=== PATIENT | male | born 1970 | race Caucasian/White ===

== ENCOUNTER 2020-07-05 09:00 | Emergency (ER) | payer BC, SELFPAY ==
[2020-07-05 09:11] VITALS: BP 138/82; PULSE 81; RESP 16; TEMP 36.8; O2SAT 100; BMI 24.7
--- NOTE | 2020-07-05 09:16 | HMH.EDUTC ---
[facility] [place] Disposition Clinical Impression: Sinusitis Qualifiers: Sinusitis location: frontal Chronicity: acute Recurrence: non-recurrent Qualified Code(s): J01.10 - Acute frontal sinusitis, unspecified Disposition: Home, Self-Care Condition on Discharge: Good Instructions: DI for Sinusitis Additional Instructions: RTC if symptoms worsen Prescriptions: Doxycycline Hyclate [Doxycycline 100mg Capsule] 100 mg PO Q12 10 Days #20 cap Transmission Status: Pending to [facility] predniSONE [Prednisone 20mg Tab] 20 mg PO BID 5 Days #10 tab Transmission Status: Pending to [facility] Promethazine/Dextromethorphan [Promethazine-Dm Syrup] 5 ml PO Q6HP PRN 10 Days #180 syrup PRN Reason: Cough Transmission Status: Pending to [facility] Referrals: Augusto Henao MD [Primary Care Provider] - Time of Disposition: 09:23 Medical Decision Making - Maged Inquiry Pt receiving controlled substance: No Vital Signs: 07/05/20 09:11 Temperature 98.2 F Temperature Source Oral Pulse Rate [Right Brachial] 81 Respiratory Rate 16 Blood Pressure [Right Arm] 138/82 Blood Pressure Mean [Right Arm] 100 Blood Pressure Source [Right Arm] Automatic Cuff Blood Pressure Position [Right Arm] Sitting 02 Sat by Pulse Oximetry 100 Oxygen Delivery Method Room Air [facility] [place] HPI - General Stated complaint: possible sinus infection Time Seen by Provider: 07/05/20 09:16 Mode of Arrival: Ambulatory Source of Information: Patient Limitations: No Limitations Description of Symptoms (Recalled from Triage Doc. by RN): PATIENT C/O COUGH, CHEST CONGESTION, AND SCRATCHY THROAT THAT STARTED APRROX 1500 YESTERDAY. ALSO C/O GREEN NASAL DRAINAGE HEENT Symptoms (Recalled from RN notes): Yes Resp Symptoms (Recalled from RN notes): Yes Skin Symptoms (Recalled from RN notes): No MS Symptoms (Recalled from RN notes): No Functional Status (Recalled from RN notes): WNL - History of Present Illness Provider Complaint: Cough, chest congestion, pain behind eyes X 2 days. Green sputum production. Denies ear pain. Has scratchy throat. Coughed all night long and could not sleep. No vomiting or diarrhea. No known exposure to COVID19. Onset (ago): day(s) (2) Location: face, chest Consistency: constant Relieving factors: none Exacerbating factors: none Associated symptoms: denies other symptoms Treatments prior to arrival: other (OTC cough med) - Related Data Previous Rx's Medication Instructions Recorded Doxycycline Hyclate [Doxycycline 100 mg PO Q12 10 Days #20 cap 07/05/20 100mg Capsule] Promethazine/Dextromethorphan 5 ml PO Q6HP PRN 10 Days #180 syrup 07/05/20 [Promethazine-Dm Syrup] predniSONE [Prednisone 20mg 20 mg PO BID 5 Days #10 tab 07/05/20 Tab] Allergies Allergy/AdvReac Type Severity Reaction Status Date / Time Penicillins Allergy Mild Verified 07/05/20 09:16 - Worker's Comp Is this a Worker's Comp case?: No [facility] History - Hepatitis A Screen Drug use history?: No High risk sexual behaviors?: No History of sexually transmitted infection?: No Currently employed?: No Childcare worker?: No Do you have indoor plumbing?: Yes Do you have electricity?: Yes Attestation statement:: This patient has been screened for Hepatitis A risk factors. I have reviewed the patient's past medical history: Yes - Social History Smoking Status: Never smoker Tobacco Type: smokeless tobacco # Packs/Day (cigarettes): 0 Alcohol Intake: never Occupational Status: other ROS Obtained: Yes All systems reviewed & no additional complaints - Constitutional Constitutional: Denies body ache, Denies chills, Denies fever(s), Reports malaise - Eyes Eyes: Reports eye pain - ENT Ears, Nose, Mouth, and Throat: Denies otalgia, Denies headache(s), Reports post nasal drip - Cardiovascular Cardiovascular: Denies dyspnea - Respiratory Respiratory: Yes change in phlegm color, Yes cough Physical Exam - General Ge
[2020-07-05 09:20] VITALS: BP 138/82; PULSE 81; RESP 16; TEMP 36.8; O2SAT 100
== END 2020-07-05 09:28 | disposition home or self-care (01) ==
PROVIDERS: Emergency Provider Physician Assistant; PCP Family Medicine
DX: J01.00 Acute maxillary sinusitis, unspecified (principal); Z88.0 Allergy status to penicillin
CPT/HCPCS: 99201

== ENCOUNTER 2020-08-09 08:59 | Emergency (ER) | payer BC, SELFPAY ==
[2020-08-09 09:09] VITALS: BP 148/88; PULSE 70; RESP 18; TEMP 36.6; O2SAT 97; BMI 25.0
--- NOTE | 2020-08-09 09:24 | HMH.EDUTC ---
[facility] [place] Clinical Impression: Sinusitis Qualifiers: Sinusitis location: unspecified location Chronicity: unspecified Qualified Code(s): J32.9 - Chronic sinusitis, unspecified Disposition: Home, Self-Care Condition on Discharge: Good Instructions: Sinusitis, Sinus Headache, DI for Sinusitis Additional Instructions: *Monitor Temp, Over the counter Motrin or Tylenol as directed/as needed Tylenol every 4 hours and Motrin every 6 hours (as long as your family doctor has told you that you can take it) for fever or pain. and straight to ER if unable to lower temp less than 101.0 after medication given *Warm salt water gargles may help to soothe the throat *Throat Lozenges *Warm fluids like tea with honey may help to soothe the throat *Sleep elevated *Humidifier/Vaporizer *Flonase 2 sprays in each nostril daily but be aware that it may take 2-3 days before you notice improvement *Bromfed may cause drowsiness. Know how it effects you (your child) before driving, caring for small child, or sending your child to school. Not other antihistamines/allergy medications while taking bromfed' Start oral steriods tomorrow 08/10/2020 Follow up IMMEDIATELY for new or worsening symptoms or no Noticeable improvement over the next 48-72 hours. 911 for difficulty breathing or swallowing Prescriptions: Brompheniramine/Pseudoephed/Dm [Bromfed Dm Cough Syrup] 5 - 10 ml PO Q46H PRN #200 ml PRN Reason: Cough Transmission Status: Pending to [facility] Fluticasone Propionate [Flonase 50mcg nasal spray 16gm] 1 spr NS DAILY #1 bottle Transmission Status: Pending to [facility] methylPREDNISolone [Medrol 4mg tab] 4 mg PO DIRECTED #21 tab Transmission Status: Pending to [facility] Azithromycin [Z-Mayo 250mg Tab] 250 mg PO DIRECTED #6 tab Transmission Status: Pending to [facility] Referrals: Augusto Henao MD [Primary Care Provider] - As needed Time of Disposition: 09:31 Medical Decision Making - Maged Inquiry Pt receiving controlled substance: No Maged was queried for this patient: No Vital Signs: 08/09/20 09:09 Temperature 97.9 F Temperature Source Oral Pulse Rate [Radial] 70 Respiratory Rate 18 Blood Pressure [Right Arm] 148/88 H Blood Pressure Mean [Right Arm] 108 Blood Pressure Source [Right Arm] Automatic Cuff Blood Pressure Position [Right Arm] Sitting 02 Sat by Pulse Oximetry 97 Oxygen Delivery Method Room Air [facility] [place] - General Stated complaint: SINUS Time Seen by Provider: 08/09/20 09:24 Mode of Arrival: Ambulatory Source of Information: Patient Limitations: No Limitations Description of Symptoms (Recalled from Triage Doc. by RN): sinus pressure, drainage, cough HEENT Symptoms (Recalled from RN notes): Yes Resp Symptoms (Recalled from RN notes): No Skin Symptoms (Recalled from RN notes): No MS Symptoms (Recalled from RN notes): No Functional Status (Recalled from RN notes): wnl - History of Present Illness Provider Complaint: Patient states that he has been having sinus pain and pressure along with drainage and worsening of cough when he lays down States that the cough has been keeping him up all night States that he was seen about a month ago and given some medication and it helped but then returned about a week ago and has continued to get worse - Related Data Previous Rx's Medication Instructions Recorded Doxycycline Hyclate [Doxycycline 100 mg PO Q12 10 Days #20 cap 07/05/20 100mg Capsule] Promethazine/Dextromethorphan 5 ml PO Q6HP PRN 10 Days #180 syrup 07/05/20 [Promethazine-Dm Syrup] predniSONE [Prednisone 20mg 20 mg PO BID 5 Days #10 tab 07/05/20 Tab] Azithromycin [Z-Mayo 250mg Tab] 250 mg PO DIRECTED #6 tab 08/09/20 Brompheniramine/Pseudoephed/Dm 5 - 10 ml PO Q46H PRN #200 ml 08/09/20 [Bromfed Dm Cough Syrup] Fluticasone Propionate [Flonase 1 spr NS DAILY #1 bottle 08/09/20 50mcg nasal spray 16gm] methylPREDNISolone [Medrol
[2020-08-09 09:37] VITALS: BP 148/88; PULSE 70; RESP 18; TEMP 36.6; O2SAT 97
== END 2020-08-09 09:38 | disposition home or self-care (01) ==
PROVIDERS: Emergency Provider Nurse Practitioner; PCP Family Medicine
DX: J32.9 Chronic sinusitis, unspecified (principal); Z88.0 Allergy status to penicillin
CPT/HCPCS: 96372; 99201

== ENCOUNTER 2020-10-28 17:03 | Emergency (ER) | payer BC, SELFPAY ==
[2020-10-28 17:04] VITALS: BP 149/89; PULSE 89; RESP 18; TEMP 37; O2SAT 99; BMI 25.0
--- NOTE | 2020-10-28 17:29 | HMH.EDUTC ---
[facility] [place] Disposition Clinical Impression: Viral syndrome, Exposure to COVID-19 virus Disposition: Home, Self-Care Condition on Discharge: Good Instructions: DI for COVID-19 (Suspected or Confirmed ), Preventing the Spread of Coronavirus Discharge Instructions Additional Instructions: Drink plenty of fluids. Take tylenol for pain or fever. Return if you begin to have difficulty breathing. Follow up with your regular doctor. GO TO THE ER FOR ANY WORSENING SYMPTOMS Prescriptions: Ondansetron [Zofran 4mg ODT] 4 mg PO Q8HP PRN #12 tab.rapdis PRN Reason: Nausea Transmission Status: Received by [facility] Referrals: Augusto Henao MD [Primary Care Provider] - Time of Disposition: 17:37 Medical Decision Making - Medical Records Medical records reviewed: No: I reviewed the patient's medical records. - Maged Inquiry Pt receiving controlled substance: No Vital Signs: 10/28/20 17:04 10/28/20 17:41 Temperature 98.6 F 98.6 F Temperature Source Oral Oral Pulse Rate 89 Pulse Rate [Right] 89 Respiratory Rate 18 18 Blood Pressure 149/89 H Blood Pressure [Right Arm] 149/89 H Blood Pressure Mean [Right Arm] 109 02 Sat by Pulse Oximetry 99 Orders (Tests/Meds): ORDERS Category Date Time Status Covid-19 Nasal PCR Sendout [facility] 10/28/20 17:16 Received [facility] [place] HPI - General Stated complaint: work sent pt home to have covid test Time Seen by Provider: 10/28/20 17:29 Description of Symptoms (Recalled from Triage Doc. by RN): pt request COVID test pt c/o chills,weakness,murray n/v since monday HEENT Symptoms (Recalled from RN notes): Yes Resp Symptoms (Recalled from RN notes): Yes Skin Symptoms (Recalled from RN notes): No MS Symptoms (Recalled from RN notes): No Functional Status (Recalled from RN notes): wnl - History of Present Illness Provider Complaint: He states that for the past 3 days he has had fatigue and a mild headache. Today he went to work but the temperature scanner said that his temp was up. Since coming here he has began to have body aches and chilling. - Related Data Previous Rx's Medication Instructions Recorded Doxycycline Hyclate [Doxycycline 100 mg PO Q12 10 Days #20 cap 07/05/20 100mg Capsule] Promethazine/Dextromethorphan 5 ml PO Q6HP PRN 10 Days #180 syrup 07/05/20 [Promethazine-Dm Syrup] predniSONE [Prednisone 20mg 20 mg PO BID 5 Days #10 tab 07/05/20 Tab] Azithromycin [Z-Mayo 250mg Tab] 250 mg PO DIRECTED #6 tab 08/09/20 Brompheniramine/Pseudoephed/Dm 5 - 10 ml PO Q46H PRN #200 ml 08/09/20 [Bromfed Dm Cough Syrup] Fluticasone Propionate [Flonase 1 spr NS DAILY #1 bottle 08/09/20 50mcg nasal spray 16gm] methylPREDNISolone [Medrol 4mg 4 mg PO DIRECTED #21 tab 08/09/20 tab] Ondansetron [Zofran 4mg ODT] 4 mg PO Q8HP PRN #12 tab.rapdis 10/28/20 Allergies Allergy/AdvReac Type Severity Reaction Status Date / Time Penicillins Allergy Mild Verified 10/28/20 17:18 - Worker's Comp Is this a Worker's Comp case?: No Is this an [facility] Worker's Comp?: No [facility] History - Hepatitis A Screen Drug use history?: No High risk sexual behaviors?: No History of sexually transmitted infection?: No Currently employed?: No Childcare worker?: No Do you have indoor plumbing?: Yes Do you have electricity?: Yes Attestation statement:: This patient has been screened for Hepatitis A risk factors. I have reviewed the patient's past medical history: Yes - Social History Smoking Status: Never smoker Tobacco Type: smokeless tobacco # Packs/Day (cigarettes): 0 Alcohol Intake: never Occupational Status: employed ROS Obtained: Yes All systems reviewed & no additional complaints - Constitutional Constitutional: Reports system reviewed and no additional complaints, except as docu - Eyes Eyes: Reports system reviewed and no additional complaints, except as docu - ENT Ears, Nose, Mouth, and Throat: Reports system review
[2020-10-28 17:41] VITALS: BP 149/89; PULSE 89; RESP 18; TEMP 37; O2SAT 99
[2020-10-30 11:18] LABS: Covid-19 Nasal PCR Sendout P&C NEGATIVE
== END 2020-10-28 17:42 | disposition home or self-care (01) ==
PROVIDERS: Emergency Provider Nurse Practitioner Family; PCP Family Medicine
DX: Z20.822 Contact with and (suspected) exposure to COVID-19 (principal); B34.9 Viral infection, unspecified; Z88.0 Allergy status to penicillin
CPT/HCPCS: 99202; G0463; U0004

== ENCOUNTER → 2020-11-02 10:08 | Outpatient (CLI) | payer BC, SELFPAY ==
[2020-11-03 10:54] LABS: Covid-19 Nasal PCR Sendout P&C POSITIVE
== END ==
PROVIDERS: PCP Nurse Practitioner; Visit Provider Nurse Practitioner
DX: R68.89 Other general symptoms and signs (principal); R07.0 Pain in throat
CPT/HCPCS: U0004

== ENCOUNTER 2020-11-06 11:46 | Emergency (ER) | payer BC, SELFPAY ==
[2020-11-06 11:47] VITALS: BP 152/96; PULSE 100; RESP 20; TEMP 37; O2SAT 96; BMI 24.4
--- NOTE | 2020-11-06 12:02 | HMH.EDGENADL ---
ED Disposition Clinical Impression: COVID-19, Malaise Disposition: Home, Self-Care Condition on Discharge: Good Additional Instructions: Follow-up with your primary care provider in 2 to 3 days via telehealth for reevaluation. Continue to use ibuprofen/Tylenol for fever, body aches. Use Zofran if needed for nausea. Prescriptions: Ondansetron [Zofran 4mg ODT] 4 mg PO Q6 PRN #10 tab.rapdis PRN Reason: Nausea Transmission Status: Pending to [facility] Referrals: Cindy Verma APRN [Primary Care Provider] - 3 days - Critical Care Critical Care Time: No Attestation: On 11/06/20, the high probability of a clinically significant, sudden or life threatening deterioration of the following system(s) required my full and direct attention, intervention and personal management. The time I documented below is in addition to time spent performing reported procedures but includes the following listed in this critical care notation. Medical Decision Making - Medical Records Medical records reviewed: Yes: I reviewed the patient's medical records. - Maged Inquiry Pt receiving controlled substance: No Vital Signs: 11/06/20 11:47 Temperature 98.6 F Temperature Source Oral Pulse Rate [Left Radial] 100 H Respiratory Rate 20 Blood Pressure [Right Arm] 152/96 H Blood Pressure Mean [Right Arm] 114 Blood Pressure Source [Right Arm] Automatic Cuff Blood Pressure Position [Right Arm] Sitting 02 Sat by Pulse Oximetry 96 Oxygen Delivery Method Room Air Medical Decision Narrative: Patient presents here with no fever, slight tachycardia consistent with his reports of not drinking much water or eating much. He is able to tolerate p.o. however, so does not need IV hydration. Will prescribe Zofran for his nausea. Lung sounds are completely clear and oxygen saturations are 95% on room air. Low suspicion for acute bacterial pneumonia that would require antibiotics at this time. He has not had any cough. Advised continued home monitoring and treatment of his symptoms with ibuprofen/Tylenol. Encouraged telemedicine follow-up with PCP in 2 to 3 days for reevaluation. Discharged home. General Adult HPI - General Chief complaint: Fever Stated complaint: covid +, aches, headache, dizzy Time Seen by Provider: 11/06/20 12:02 Mode of Arrival: Ambulatory Source of Information: Patient Limitations: No Limitations Description of Symptoms (Recalled from ER Triage Doc. by RN): c/o low grade fever of 100.8, soa and feeling not a well as he was. Denies any cough - History of Present Illness HPI narrative: This is a 50-year-old male who is Covid positive for the last 9 days who presents to the emergency department for continued fever and malaise. He is only short of breath if he gets up and moves around. He has not had any vomiting or diarrhea, but does have decreased appetite. No abdominal pain, chest pain. No cough. He had a fever yesterday. No known exacerbating or alleviating factors. - Related Data Previous Rx's Medication Instructions Recorded Doxycycline Hyclate [Doxycycline 100 mg PO Q12 10 Days #20 cap 07/05/20 100mg Capsule] Promethazine/Dextromethorphan 5 ml PO Q6HP PRN 10 Days #180 syrup 07/05/20 [Promethazine-Dm Syrup] predniSONE [Prednisone 20mg 20 mg PO BID 5 Days #10 tab 07/05/20 Tab] Azithromycin [Z-Mayo 250mg Tab] 250 mg PO DIRECTED #6 tab 08/09/20 Brompheniramine/Pseudoephed/Dm 5 - 10 ml PO Q46H PRN #200 ml 08/09/20 [Bromfed Dm Cough Syrup] Fluticasone Propionate [Flonase 1 spr NS DAILY #1 bottle 08/09/20 50mcg nasal spray 16gm] methylPREDNISolone [Medrol 4mg 4 mg PO DIRECTED #21 tab 08/09/20 tab] Ondansetron [Zofran 4mg ODT] 4 mg PO Q8HP PRN #12 tab.rapdis 10/28/20 Ondansetron [Zofran 4mg ODT] 4 mg PO Q6 PRN #10 tab.rapdis 11/06/20 Allergies Allergy/AdvReac Type Severity Reaction Status Date / Time Penicillins Allergy Mild Verified 10/28/20 17:1
[2020-11-06 12:18] VITALS: BP 145/90; PULSE 100; RESP 20; TEMP 37; O2SAT 96
== END 2020-11-06 12:19 | disposition home or self-care (01) ==
PROVIDERS: Emergency Provider Emergency Medicine; PCP Nurse Practitioner
DX: U07.1 COVID-19 (principal); R50.9 Fever, unspecified; R53.1 Weakness; Z88.0 Allergy status to penicillin
CPT/HCPCS: 99281

== ENCOUNTER → 2021-07-19 09:58 | Outpatient (CLI) | payer BC, SELFPAY ==
--- NOTE | 2021-07-19 10:04 | XR_ITS ---
PROCEDURE: XR FOOT WT BEARING LT 3V CLINICAL INDICATION: SPRAIN OF FIFTH TOE OF LT FOOT, INITIAL ENCOUNTER COMPARISON: No exams were available for comparison FINDINGS: No fracture or dislocation. No lytic or blastic change. There is normal mineralization. The joint spaces are well-preserved. No significant degenerative/arthritic changes. No erosive changes evident. Other findings:Mild soft tissue swelling lateral to the 5th MTP joint IMPRESSION: Soft tissue swelling otherwise negative Dictated by: Joel Flores MD 07/20/2021 07:28 Joel Flores MD in [place] 07/20/2021 07:28
== END ==
PROVIDERS: PCP Family Medicine; Visit Provider Family Medicine
DX: S93.505A Unspecified sprain of left lesser toe(s), initial encounter (principal)
CPT/HCPCS: 73630

== ENCOUNTER 2021-09-04 09:09 | Emergency (ER) | payer BC, SELFPAY ==
[2021-09-04 09:15] VITALS: BP 148/92; PULSE 91; RESP 19; TEMP 36.8; O2SAT 98; BMI 27.9
--- NOTE | 2021-09-04 09:44 | HMH.EDUTC ---
[facility] [place] Clinical Impression: Sinusitis Qualifiers: Sinusitis location: unspecified location Chronicity: unspecified Qualified Code(s): J32.9 - Chronic sinusitis, unspecified Disposition: Home, Self-Care Condition on Discharge: Good Instructions: Sinusitis, DI for Sinusitis, Azithromycin Additional Instructions: *Monitor Temp, Over the counter Motrin or Tylenol as directed/as needed Tylenol every 4 hours and Motrin every 6 hours (as long as your family doctor has told you that you can take it) for fever or pain. and straight to ER if unable to lower temp less than 101.0 after medication given *Warm fluids like tea with honey may help to soothe the throat and open up sinus congestion *Sleep elevated *Humidifier/Vaporizer *Bromfed may cause drowsiness. Know how it effects you (your child) before driving, caring for small child, or sending your child to school. Not other antihistamines/allergy medications while taking bromfed Start oral Medrol dose pack tomorrow Follow up IMMEDIATELY for new or worsening symptoms or no Noticeable improvement over the next 48-72 hours. 911 for difficulty breathing or swallowing Prescriptions: Brompheniramine/Pseudoephed/Dm [Bromfed Dm Cough Syrup] 5 - 10 ml PO Q46H PRN #200 ml PRN Reason: Cough Transmission Status: Received by [facility] methylPREDNISolone [Medrol 4mg tab] 4 mg PO DIRECTED #21 tab Transmission Status: Received by [facility] Azithromycin [Z-Mayo 250mg Tab] 250 mg PO DIRECTED #6 tab Transmission Status: Received by [facility] Referrals: Augusto Henao MD [Primary Care Provider] - As needed Time of Disposition: 09:53 Medical Decision Making - Maged Inquiry Pt receiving controlled substance: No Maged was queried for this patient: No Vital Signs: 09/04/21 09:15 09/04/21 09:59 Temperature 98.3 F 98.3 F Temperature Source Oral Pulse Rate 91 H Pulse Rate [Right Brachial] 91 H Respiratory Rate 19 19 Blood Pressure 148/92 H Blood Pressure [Right Arm] 148/92 H Blood Pressure Mean [Right Arm] 110 Blood Pressure Source [Right Arm] Automatic Cuff Blood Pressure Position [Right Arm] Sitting 02 Sat by Pulse Oximetry 98 Oxygen Delivery Method Room Air Orders (Tests/Meds): ED MEDICATIONS Discontinued Medications Generic Name Dose Route Start Last Admin Trade Name Ethan PRN Reason Stop Dose Admin Methylprednisolone Sodium Succinate 125 mg 09/04/21 09:49 09/04/21 09:56 Methylprednisolone Sod Succ 125mg Vial IM 09/04/21 09:50 125 mg ONCE ONE Administration [facility] [place] HPI - General Stated complaint: sinus pressure Time Seen by Provider: 09/04/21 09:47 Mode of Arrival: Ambulatory Source of Information: Patient Limitations: No Limitations Description of Symptoms (Recalled from Triage Doc. by RN): PATIENT C/O SINUS DRAINAGE AND PRESSURE X 3 DAYS HEENT Symptoms (Recalled from RN notes): Yes Resp Symptoms (Recalled from RN notes): No Skin Symptoms (Recalled from RN notes): No MS Symptoms (Recalled from RN notes): No Functional Status (Recalled from RN notes): WNL - History of Present Illness Provider Complaint: Patient state that he has been having sinus pain and pressure for close to a week States today he is feeling the pressure worse States that he feels like it is draining in his throat so he came in to get checked - Related Data Previous Rx's Medication Instructions Recorded Azithromycin [Z-Mayo 250mg Tab] 250 mg PO DIRECTED #6 tab 09/04/21 Brompheniramine/Pseudoephed/Dm 5 - 10 ml PO Q46H PRN #200 ml 09/04/21 [Bromfed Dm Cough Syrup] methylPREDNISolone [Medrol 4mg 4 mg PO DIRECTED #21 tab 09/04/21 tab] Allergies Allergy/AdvReac Type Severity Reaction Status Date / Time Penicillins Allergy Mild Verified 08/19/21 09:33 - Worker's Comp Is this a Worker's Comp case?: No [facility] History - Hepatitis A Screen Drug use history?: No High risk sexual behaviors?: No
[2021-09-04 09:59] VITALS: BP 148/92; PULSE 91; RESP 19; TEMP 36.8; O2SAT 98
== END 2021-09-04 10:04 | disposition home or self-care (01) ==
PROVIDERS: Emergency Provider Nurse Practitioner; PCP Family Medicine
DX: J32.9 Chronic sinusitis, unspecified (principal); Z88.0 Allergy status to penicillin
CPT/HCPCS: 96372; 99202; G0463

== ENCOUNTER → 2021-12-24 15:09 | Outpatient (CLI) | payer BC, SELFPAY ==
--- NOTE | 2021-12-24 15:15 | XR_ITS ---
FINAL REPORT CLINICAL HISTORY: POSITIVE PPD skin test FINDINGS: Two views of the chest were obtained. The heart size and pulmonary vascularity are within normal limits. The mediastinum is normal. No acute pulmonary abnormality is identified. There is no evidence of active mycobacterial/fungal disease. There is no pneumothorax. The bony thorax is intact. IMPRESSION: No active cardiopulmonary disease. Reviewed, Interpreted and Dictated by Sam El III, MD Transcribed by Brandin Mejia Authenticated by Sam El III, MD on 12/24/2021 04:20:26 PM [facility]
[2021-12-28 04:51] LABS: QuantiFERON-TB Gold Plus Negative (Negative)
== END ==
PROVIDERS: PCP Nurse Practitioner Family; Visit Provider Nurse Practitioner Family
DX: R76.11 Nonspecific reaction to tuberculin skin test without active tuberculosis (principal)
CPT/HCPCS: 36415; 71046; 86480

== ENCOUNTER → 2022-02-23 08:28 | Outpatient (CLI) | payer BC, SELFPAY ==
--- NOTE | 2022-02-23 08:28 | MR_ITS ---
FINAL REPORT CLINICAL HISTORY: left foot pain, lateral numbness, taylors bunion 5th digit 18ml prohance injected FINDINGS: Multiplanar MR imaging of the left foot was performed with and without contrast. There is no evidence of fracture, bone bruise or marrow edema. No bony mass is identified. The musculature is intact. There is peroneus longus and brevis tenosynovitis at the level of calcaneus. There is soft tissue edema with a small amount of fluid in the plantar lateral forefoot at the level of the 5th metatarsal head. No soft tissue mass or cyst is identified. There is mild contrast enhancement in the subcutaneous tissues deep to the 5th metatarsal head, consistent with mild inflammatory change. IMPRESSION: Mild inflammatory change in the subcutaneous tissues deep to the 5th metatarsal head. Peroneus longus and brevis tenosynovitis. No acute bony abnormality. Reviewed, Interpreted and Dictated by Sam El III, MD Transcribed by Mikaela Ramirez Authenticated by Sam El III, MD on 02/23/2022 10:56:[address] [facility]
== END ==
PROVIDERS: PCP Nurse Practitioner Family; Visit Provider Podiatrist
DX: M21.622 Bunionette of left foot (principal); M79.672 Pain in left foot; M79.675 Pain in left toe(s); M79.89 Other specified soft tissue disorders
CPT/HCPCS: 73720; A9576

== ENCOUNTER → 2022-03-17 08:04 | Outpatient (CLI) | payer BC, SELFPAY ==
--- NOTE | 2022-03-17 08:06 | ECG_ITS ---
APPROVED REPORT Exam: Resting ECG HR:67 bpm ECG Measurements Heart Rate 67 AXES AK 123 P 65 QRSd 88 QRS 79 QT 380 T 57 QTc 395 Conclusion SINUS RHYTHM NORMAL ECG UNCONFIRMED REPORT Electronically signed by : Augusto Simon MD 03/17/2022 21:17:31
--- NOTE | 2022-03-17 08:09 | XR_ITS ---
FINAL REPORT CLINICAL HISTORY: preop testing for foot surgery Monday. COMPARISON: December 24, 2021 FINDINGS: Two views of the chest were obtained. The heart size and pulmonary vascularity are within normal limits. The mediastinum is normal. No acute pulmonary abnormality is identified. There is no pneumothorax. The bony thorax is intact. IMPRESSION: No active cardiopulmonary disease. Reviewed, Interpreted and Dictated by Sam El III, MD Transcribed by Mikaela Ramirez Authenticated and [facility]
[2022-03-17 08:52] LABS: Basophils # 0.1 K/mm3 (0-0.2); Basophils % 1.4 % (0.1-2.0); Eosinophils % 0.7 % (0.1-12.0); Hematocrit 48.3 % (42.0-52.0); Hemoglobin 16.5 g/dL (14.1-18.0); Lymphocytes # 2.2 K/mm3 (0.7-4.5); Lymphocytes % 33.4 % (10-50); Mean Corpuscular HGB Conc 34.1 g/dL (31.8-35.4); Mean Corpuscular Hemoglobin 33.4 pg (27.0-31.2); Mean Corpuscular Volume 97.7 fl (80-94); Mean Platelet Volume 9.4 fl (7.4-10.4); Monocytes # 0.3 K/mm3 (0.1-1.0); Monocytes % 4.8 % (1.7-9.3); Neutrophils # 3.9 K/mm3 (1.8-7.8); Neutrophils % 59.7 % (37.0-80.0); Platelet Count 222 K/mm3 (142-424); Red Blood Count 4.95 M/mm3 (4.60-6.20); Red Cell Distribution Width 13.3 % (11.5-17.5); White Blood Count 6.5 K/mm3 (4.8-10.8)
[2022-03-17 09:52] LABS: Chloride 105 mmol/L (98-107); Sodium 139 mmol/L (136-145)
[2022-03-17 09:55] LABS: Alanine Aminotransferase 26 U/L (12-78); Albumin Level 4.4 g/dl (3.5-5.0); Albumin/Globulin Ratio 1.6 (1.1-1.8); Alkaline Phosphatase 60 U/L (38-126); Aspartate Amino Transferase 28 U/L (17-59); Bilirubin,Total 0.8 mg/dl (0.2-1.3); Blood Urea Nitrogen 14 mg/dl (9-20); Calcium 9.9 mg/dl (8.4-10.2); Carbon Dioxide 26 mmol/L (22.0-30.0); Estimated Glomerular Filt Rate 102 ml/min (>60); GFR (African American) 124 ML/MIN (>60); Globulin 2.7 g/dL (1.3-3.2); Glucose 124 mg/dl (74-100); Total Protein,Serum 7.1 g/dl (6.3-8.2)
== END ==
PROVIDERS: PCP Nurse Practitioner Family; Visit Provider Podiatrist
DX: Z01.818 Encounter for other preprocedural examination (principal); M79.671 Pain in right foot
CPT/HCPCS: 36415; 71046; 80053; 85025; 93005

== ENCOUNTER → 2022-03-20 08:25 | Outpatient (CLI) | payer BC, SELFPAY | PROVIDERS: PCP Nurse Practitioner Family; Visit Provider Podiatrist | DX: Z01.812 Encounter for preprocedural laboratory examination (principal); Z20.822 Contact with and (suspected) exposure to COVID-19; M21.622 Bunionette of left foot | CPT/HCPCS: C9803; U0003; U0005 ==

== ENCOUNTER 2022-03-23 06:01 | Day surgery (SDC) | payer BC, SELFPAY ==
[2022-03-23] VITALS (12 sets, daily range): BP systolic 107–139; BP diastolic 64–90; PULSE 65–88; RESP 12–18; TEMP 36.2–43; O2SAT 93–100; BMI 25.2
--- NOTE | 2022-03-23 07:22 | HMH.OPNOTE ---
Date of procedure: 03/23/22 Pre-op Diagnosis:: 1. Tailor's bunion of left foot 2. Left foot pain 3. Metatarsalgia of left foot 4. Capsulitis of metatarsophalangeal (MTP) joint of left foot 5. Peroneal tenosynovitis 6. Deformity of toe of left foot 7. Crossover toe deformity of left foot 8. Overweight (BMI 25.0-29.9) Post-op Diagnosis:: Same Procedure performed:: 1. Left tailor's bunionectomy 2. Left ostectomy 5th met head/ partial excision metatarsal 3. Left 5th MPJ capsulotomy 4. Left HT 5 repair (PIPJ AP)/skin plasty 5. Left soft tissue reconstruction of angular toe deformity 6. Left peroneal (longus) tenosynovectomy 7. Left direct open repair peroneal (brevis) tendon with allograft Surgeon:: Josie Sr DPM Anesthesia: GETA, regional (left popliteal nerve block) Estimated blood loss (mL): 20 Clinical Note:: Patient is a 51-year-old male who presents with continued left foot pain, tailor's bunionette and peroneal tenosynovitis. Recent MRI 02/23/2022 showed mild inflammatory change in the subcutaneous tissue deep to the fifth metatarsal head and peroneus longus and brevis tenosynovitis. The patient has tried modification of shoe gear, taping, strapping, inserts, ice, elevation, NSAIDs, injections and oral steroids. After a long discussion with the patient in regards to the conservative versus surgical treatment for the bunion deformity, the patient has elected to proceed with surgery because they have failed conservative treatment and continue to have pain and worsening symptoms affecting daily activities. The patient has been instructed on the planned procedure, all risk versus benefits of the procedure to include bleeding, infection, nerve and blood vessel damage, need for further surgery, delay in healing of soft tissue or bone, failure of bones to heal, non-union, mal-union, prolonged pain and recovery, prolonged swelling, recurrent deformity, CRPS/RSD, DVT and anesthetic complications. No guarantees were given. All questions fully answered. The patient verbalized understanding and agreed to proceed with surgery. Written consent was obtained. Medical clearance per PCP: Gia Shell. Necessary labs and pre-op testing ordered: CBC, CMP, EKG, CXR. Rx for [place] 7.5/325 # 28, Zofran 4mg, Motrin 800mg #60. Patient will need crutches. Dispensed/fitted short fracture boot in office today. Operative findings:: Left fifth digit adductovarus rotation with fourth toe overlap. Dorsal eminence noted to the dorsal lateral fifth metatarsal head. Left peroneus brevis tendon had a longitudinal split tear just inferior to the distal fibula approximately 4 cm in length. Peroneus longus tendon had tenosynovitis noted but no distinct tear. Operative note:: On this date and time patient was deemed an appropriate surgical candidate. Pre-op regional popliteal nerve block performed by anesthesia. With informed consent signed, the patient was taken to the operating theater. Patient positioned supine. General anesthesia was induced. Tourniquet was applied to the left thigh. IV Clinda infused. The left lower extremity was prepped and draped in normal sterile fashion. Left 5th MPJ capsulotomy: Attention was directed to the 5th MPJ where a linear incision was made. Dissection carried down to level of MPJ. There was some thickened tissue noted to the lateral aspect of the joint which was sharply resected. Capsulotomy was performed releasing some of the contracture. Left tailor's bunionectomy, ostectomy 5th met head/ partial excision metatarsal: Fifth metatarsal head was evaluated. No cortical erosions noted. Utilizing a saw the dorsal lateral aspect of the metatarsal head was transected. A power rasp was then used to smooth the pain down so there were no bony prominences noted. Wound flushed with copious amounts of saline. 2-0 Vicryl used to repair the deep tissue and nylon used to close the skin. Left 5th Hammertoe Repair (PIPJ AP) with skin plasty (soft tissue reconstruct
--- NOTE | 2022-03-23 07:57 | P.PN_ITS ---
[facility] Anesthesia Checklist - Structural Data Admitted From: Home Planned Operative Procedure/s: l bunionectomy Consent for Planned Operative Procedure(s) Verified: Yes - Additional verifications Anesthesia Reactions: No Hx Blood Transfusions: No Blood Transfusion Reaction: No - Airway Assessment C-Spine Mobility Assessed: Yes TMJ Mobility Assessed: Yes Dentition: Good Dentition - Neurological Assessment Level of Consciousness: Awake, Alert, Appropriate - Anesthesia Plan Anesthesia Risk discussed: Yes Anesthesia Plan: Verified ASA Class: I Anesthesia Type: General w/block [facility] History I have reviewed the patient's past medical history: Yes Medical History: Denies:: Cancer, Diabetes Mellitus Type 1, Diabetes Mellitus Type 2, Internal Pacemaker, MRSA, Seizures *Have you ever received a pneumonia vaccine?: No *Have you received a flu vaccine this season?: No Other Medical History: Denies: Blood Transfusion Reaction Anesthesia experience/problems:: none Other Surgeries: Yes: No Previous Surgery, Other. No: Pacemaker Amputation: No Fractures: No - *Social History Last grade of school completed: High school graduate Smoking Status: Never smoker Tobacco Type: smokeless tobacco # Packs/Day (cigarettes): 0 Alcohol Intake: current Alcohol Intake Frequency:: holidays/special occasions only Substance Use Type: denies use *Occupational Status:: employed *Travel in the last 8 weeks: None Family Hx:: Cancer, Heart Attack
--- NOTE | 2022-03-23 08:25 | XR_ITS ---
FINAL REPORT CLINICAL HISTORY: tailor bunionectomy Fluoro time: .09 FINDINGS: FINDINGS: FLUORO TIME PROCEDURE: Fluoroscopy in the operating room. FINDINGS: Fluoroscopy time was provided by the radiology department for the clinical service. One film was obtained. Fluoroscopy exposure time: 0:09 Reviewed, Interpreted and Dictated by Sam El III, MD Transcribed by Robyn Macdonald Authenticated and . [facility]
--- NOTE | 2022-03-23 09:20 | HMH.ANESI ---
[facility] Anesthesia Record Part I Intake, IV Amount: 1,500 Estimated blood loss (mL): 0 Urine output (mL): 0 Blood Pressure: 122/74 SaO2: 96 Pulse Rate: 88 Respiratory Rate: 12 Temperature: 97.2 F Patient is:: Awake, Stable Stable to PACU at:: 09:15
--- NOTE | 2022-03-23 09:30 | XR_ITS ---
FINAL REPORT CLINICAL HISTORY: Post op tailor bunionectomy FINDINGS: FLUORO TIME PROCEDURE: Fluoroscopy in the operating room. FINDINGS: Fluoroscopy time was provided by the radiology department for the clinical service. One film was obtained. Fluoroscopy exposure time: 0:09 IMPRESSION: See above Reviewed, Interpreted and Dictated by Sam El III, MD Transcribed by Robyn Macdonald Authenticated and [facility]
--- NOTE | 2022-03-23 09:50 | SUR.PHASEI ---
0942 called and provided detailed report to Madina Leahy RN 0945 transported via stretcher to post op. vital signs stable. denies pain. left in stable condition with Madina Leahy RN at bedside.
--- NOTE | 2022-03-23 13:13 | HMH.ANESII ---
[facility] Anesthesia Record Part II Discharge Time: 09:45 Destination: Surgical Day Care (OP Surgery) PACU nurse assessment reviewed?: Yes Patient Condition:: Good Anesthesia Complications:: None Swallowing reflex intact?: Yes Cyanosis?: No Blood Pressure: 114/64 Pulse Rate: 77 Temperature: 97.1 F Mental Status: Alert & Oriented Pain level:: 0 Nausea and/or vomitting:: None Intake, IV Amount: 0
== END 2022-03-23 10:32 | disposition home or self-care (01) ==
LOC: OR 06:03
PROVIDERS: PCP Nurse Practitioner Family; Visit Provider Podiatrist
PROC: (CPT 28308; principal; 2022-03-23 07:30)
DX: M21.622 Bunionette of left foot (principal); M79.672 Pain in left foot; M77.42 Metatarsalgia, left foot; M77.52 Other enthesopathy of left foot and ankle; M67.88 Other specified disorders of synovium and tendon, other site; M20.62 Acquired deformities of toe(s), unspecified, left foot; M20.5X2 Other deformities of toe(s) (acquired), left foot; M65.872 Other synovitis and tenosynovitis, left ankle and foot
CPT/HCPCS: 28308; 28270; 28313; 27658; 73620; 73630; 76000; 96374; J2405; Q4211

== ENCOUNTER 2022-06-16 09:00 | Outpatient (RCR) | payer BC, SELFPAY ==
--- NOTE | 2022-05-10 09:32 | HMH.PTOPEV ---
PT Outpatient Evaluation Rehab PT Outpatient Evaluation Start: 05/10/22 09:17 Freq: Status: Active Protocol: Document 05/10/22 09:18 LAKESHIAALLIE (Rec: 05/10/22 09:32 TR [id number]) Electronically Signed By Brad Fuentes PT 05/10/22 09:18 Outpatient Therapy Subjective History Subjective History This is the initial Physical Therapy evaluation for Gal Downing. Pt is a 52 y/o male referred to PT s/p L foot/ ankle surgery. Pt had L foot bunionectomy and L foot peroneal tendon repair. Pt underwent surgery on 03/23/22. Pt reports original surgery was for bunionectomy only but after surgical exploration peroneal tendon was torn. Pt reports now he has c/o swelling, pain, decreased movement and strength. Chief Complaint Pain,Stiff,Swelling Symptom Type Ache,Throb,Sharp,Tingling Symptoms Relieved By Rest/Positioning Symptoms Aggravated By Standing,Physical Activity, Walking Prior Functional Limitations None Current Functional Limitations Housework,Sleeping,Standing, Squatting,Recreation Activity, Walking,Stairs Symptom Description Constant but Variable Level of pain today (0-10) 3 Pain scale - at its best (0-10) 1 Pain scale - at its worst (0-10) 5 Ankle/Foot Eval Gait Observation General Gait Pattern Observation Antalgic Gait,Decrease Weight Bear (L) Assistive Device Ambulation Assistive Device Axillary Crutches Palpation Tenderness left Ankle/Foot Palpation Findings Tenderness Ankle/Foot Palpation Overall Comment TTP along lateral L foot ROM Ankle/Foot Dorsiflexion w/Knee Extended 15 from neutral Active Range Motion (degrees) Ankle/Foot Plantar Flexion Active Range 40 of Motion (degrees) Ankle/Foot Eversion Active Range of 0 Motion (degrees) Ankle/Foot Inversion Active Range of 15 Motion (degrees) Ankle/Foot ROM Limitations Soft Tissue Tightness,Pain MMT Ankle Dorsiflexion Strength Grade 3- Fair- Ankle Plantarflexion Strength Grade 3- Fair- Foot Eversion Strength Grade 3- Fair- Foot Inversion Strength Grade 3- Fair- Outpatient Therapy Assessment Impairments Problems/Impairmments Palpation Tenderness,Impaired Range of Motion,Impaired Strength,Impaired Endu
== END 2022-06-16 09:05 | disposition home or self-care (01) ==
LOC: PT 09:00
PROVIDERS: PCP Nurse Practitioner Family; Visit Provider Podiatrist
DX: M21.622 Bunionette of left foot (principal); M65.9 Synovitis and tenosynovitis, unspecified; G89.18 Other acute postprocedural pain; Z98.890 Other specified postprocedural states
CPT/HCPCS: 97010; 97014; 97016; 97035; 97110; 97112; 97140; 97163; 97164; G0283

== ENCOUNTER → 2022-07-13 08:41 | Outpatient (CLI) | payer BC, SELFPAY ==
--- NOTE | 2022-07-13 08:49 | XR_ITS ---
FINAL REPORT CLINICAL HISTORY: Post-Op COMPARISON: 03/23/2022 FINDINGS: Left foot Three views were obtained. There is no acute fracture or dislocation. Again identified are postoperative changes of the distal aspect of the 5th proximal phalanx and 5th metatarsal head. The joint spaces appear normal. No soft tissue abnormality is identified. IMPRESSION: Postsurgical changes without acute process. Reviewed, Interpreted and Dictated by Sam El III, MD Transcribed by Lyssa Rees Authenticated and . [facility]
--- NOTE | 2022-07-13 08:49 | XR_ITS ---
FINAL REPORT CLINICAL HISTORY: Post-Op FINDINGS: Left ankle Two views were obtained. There is no acute fracture or dislocation. The joint spaces appear normal. No soft tissue abnormality is identified. IMPRESSION: No acute process. Reviewed, Interpreted and Dictated by Sam El III, MD Transcribed by Lyssa Rees Authenticated and [facility]
== END ==
PROVIDERS: PCP Nurse Practitioner Family; Visit Provider Podiatrist
DX: M79.672 Pain in left foot (principal); M25.572 Pain in left ankle and joints of left foot
CPT/HCPCS: 73600; 73630

== ENCOUNTER → 2023-01-20 12:40 | Outpatient (CLI) | payer BC, SELFPAY ==
--- NOTE | 2023-01-20 12:40 | MR_ITS ---
FINAL REPORT CLINICAL HISTORY: Left foot pain 5th digit pain and unable to move pain on lateral aspect of foot from mid foot towards heel prior surgery last year COMPARISON: 07/13/2022 FINDINGS: Multiplanar MR imaging of the left foot was performed without contrast. There are postoperative changes in the 5th metatarsal head and 5th proximal phalanx. The bony structures are intact without evidence of fracture, bone bruise or marrow edema. There is peroneus longus and brevis tendinosis and tenosynovitis at the level of the lateral malleolus. No ligamentous injury is identified. The musculature is intact. The plantar aponeurosis is intact. No soft tissue mass or cyst is identified. IMPRESSION: Postoperative changes as above. Peroneus longus and brevis tendinosis and tenosynovitis. Reviewed, Interpreted and Dictated by Sam El III, MD Transcribed by Lyssa Rees Authenticated and [facility]
== END ==
LOC: RAD 12:40
PROVIDERS: PCP Nurse Practitioner Family; Visit Provider Podiatrist
DX: M79.672 Pain in left foot (principal); G89.18 Other acute postprocedural pain
CPT/HCPCS: 73718

== ENCOUNTER → 2023-02-13 10:33 | Outpatient (CLI) | payer BC, SELFPAY ==
--- NOTE | 2023-02-13 10:51 | ECG_ITS ---
APPROVED REPORT Exam: Resting ECG HR:64 bpm ECG Measurements Heart Rate 64 AXES NJ 120 P 49 QRSd 90 QRS 78 QT 380 T -3 QTc 390 Conclusion SINUS RHYTHM MODERATE ST DEPRESSION [0.05+ mV ST DEPRESSION] ABNORMAL QRS-T ANGLE [QRS-T AXIS DIFFERENCE > 60] ABNORMAL ECG UNCONFIRMED REPORT Electronically signed by : Augusto Simon MD 02/14/2023 22:08:25
--- NOTE | 2023-02-13 11:05 | XR_ITS ---
FINAL REPORT CLINICAL HISTORY: Pain and Edema lower leg COMPARISON: March 2022 FINDINGS: There is no evidence of effusion or other pleural disease. The mediastinum has a normal appearance. The cardiac silhouette is unremarkable. IMPRESSION: Unremarkable chest exam. Reviewed, Interpreted and Dictated by Claudio Valiente MD Transcribed by Brandin Mejia Authenticated and [facility]
[2023-02-13 11:39] LABS: Basophils % 0.4 % (0.1-2.0); Eosinophils # 0.1 K/mm3 (0.0-0.4); Eosinophils % 0.8 % (0.1-12.0); Hematocrit 46.8 % (42.0-52.0); Lymphocytes # 2.4 K/mm3 (0.7-4.5); Lymphocytes % 28.1 % (10-50); Mean Corpuscular HGB Conc 34.1 g/dL (31.8-35.4); Mean Corpuscular Hemoglobin 33.1 pg (27.0-31.2); Mean Corpuscular Volume 97.1 fl (80-94); Mean Platelet Volume 9.2 fl (7.4-10.4); Monocytes # 0.5 K/mm3 (0.1-1.0); Monocytes % 6.2 % (1.7-9.3); Neutrophils # 5.4 K/mm3 (1.8-7.8); Neutrophils % 64.4 % (37.0-80.0); Platelet Count 227 K/mm3 (142-424); Red Blood Count 4.82 M/mm3 (4.60-6.20); Red Cell Distribution Width 12.8 % (11.5-17.5); White Blood Count 8.4 K/mm3 (4.8-10.8)
[2023-02-13 11:50] LABS: Chloride 100 mmol/L (98-107); Sodium 138 mmol/L (136-145)
[2023-02-13 11:52] LABS: Blood Urea Nitrogen 14 mg/dl (9-20); Estimated Glomerular Filt Rate 89 ml/min (>60); GFR (African American) 108 ML/MIN (>60)
[2023-02-13 11:53] LABS: Alanine Aminotransferase 30 U/L (12-78); Albumin Level 4.3 g/dl (3.5-5.0); Albumin/Globulin Ratio 1.6 (1.1-1.8); Alkaline Phosphatase 70 U/L (38-126); Aspartate Amino Transferase 28 U/L (17-59); Bilirubin,Total 0.7 mg/dl (0.2-1.3); Calcium 9.5 mg/dl (8.4-10.2); Carbon Dioxide 27 mmol/L (22.0-30.0); Globulin 2.7 g/dL (1.3-3.2); Glucose 108 mg/dl (74-100)
[2023-02-26 20:09] LABS: 1,25 Dihydroxy Vitamin D 67 pg/mL (.); 1,25-Dihydroxy, Vitamin D-2 <10 pg/mL (.); 1,25-Dihydroxy, Vitamin D-3 67 pg/mL (.)
== END ==
LOC: LAB 10:34
PROVIDERS: PCP Nurse Practitioner Family; Visit Provider Podiatrist
DX: Z01.818 Encounter for other preprocedural examination (principal); R60.0 Localized edema
CPT/HCPCS: 36415; 71046; 80053; 82652; 85025; 93005

== ENCOUNTER → 2023-02-15 09:13 | Outpatient (CLI) | payer BC, SELFPAY ==
--- NOTE | 2023-02-15 09:13 | CA_ITS ---
APPROVED REPORT Exam: Exercise Treadmill Technologist: Queta Soto, Ht: 6 ft 0 in Wt: 198 lbs BSA: 2.12 m2 HR: 66 bpm BP: 135/91 mmHg Rhythm: NSR, ST-T abns inferior leads Medical History Medications: Gabapentin,,,,, Ibuprofen,,,,, HydrocodIACETA,,,,, ONdanEStron,,,,, Stress Test Details Test: Lisandro HR Resting HR: 78 bpm Max Heart Rate (APMHR): 169.292796 bpm Max HR Achieved: 155 bpm Target HR (85% APMHR): 143.145124 bpm % of APMHR: 91.72 Recovery HR: 129 bpm BP Resting BP: 150/92 mmHg Max BP: 190/86 mmHg Recovery BP: 174.0/104.0 mmHg ECG Resting ECG: NSR, ST-T abns inferior leads Clinical Exercise duration: 06:01 min Highest Stage Achieved: Exercise capacity: 7.0 METs Stress ECG Conclusion During lisandro protocol pt walked total of 6 minutes. No CP noted. No arrhythmias noted. Mild exaggeration of baseline ST-T abns. Normal GXT. Test Summary REST . . . . . . . Sitting REST . . . . . . . Standing REST 04:25 0.0 0.0 78 . 150/ 92 . . Stage 1 01:00 10.0 1.7 109 . . . . Stage 1 02:00 10.0 1.7 117 . . . . Stage 1 03:00 10.0 1.7 130 . 186/ 90 . . Stage 2 01:00 12.0 2.5 138 . . . . Stage 2 02:00 12.0 2.5 149 . . . . Stage 2 03:00 12.0 2.5 152 . 190/ 86 . . Stage 3 00:01 14.0 3.4 152 . . . Stop exercise at 06:01 RECOVERY 01:00 0.0 0.0 133 . . . . RECOVERY 02:00 0.0 0.0 93 . 174/104 . . RECOVERY 03:00 0.0 0.0 117 . 157/101 . . RECOVERY 04:00 0.0 0.0 106 . 165/105 . . RECOVERY 05:00 0.0 0.0 91 . 167/101 . . RECOVERY 06:00 0.0 0.0 95 . 167/101 . . RECOVERY 07:00 0.0 0.0 93 . 167/101 . . RECOVERY 07:44 0.0 0.0 91 . 151/105 . . Electronically signed by : Man Flores MD 02/15/2023 14:56:23
== END ==
LOC: RT 09:13
PROVIDERS: PCP Nurse Practitioner Family; Visit Provider Nurse Practitioner
DX: R94.31 Abnormal electrocardiogram [ECG] [EKG] (principal)
CPT/HCPCS: 93017

== ENCOUNTER 2023-02-16 10:24 | Day surgery (SDC) | payer BC, SELFPAY ==
[2023-02-13 13:15] VITALS: BMI 26.2
[2023-02-16 11:01] VITALS: BP 126/85; PULSE 67; RESP 18; TEMP 36.4; O2SAT 97
--- NOTE | 2023-02-16 11:22 | SUR.PREOP ---
Called lab regarding vitamin D lab that was ordered preoperatively. Pt was here two days ago and lab still wasnt resulted. Was told by lab personnel that this lab was a send out and wouldn't be resulted until at least Monday. MD Sr made aware.
--- NOTE | 2023-02-16 12:29 | SUR.PREOP ---
1229- per dr. thurston, pt's cardiac clearance covers medical clearance. dr. thurston stated that she did not need pcp clearance with cardiology clearance.
--- NOTE | 2023-02-16 14:08 | P.PN_ITS ---
[facility] Disclaimer: The information contained in this section may have been updated after the patient was seen, as this information can be updated by other users. Medical History No significant past medical history Surgical History S/P foot surgery, left Family History Other Family history of cancer Social History (Updated 02/16/23 @ 11:03 by Mago Wong RN) Smoking Status: Never smoker alcohol intake: current substance use type: denies use current occupational status: employed Travel in the last 8 weeks: None caffeine: Yes [facility] Anesthesia Checklist Patient Identification Patient Identification: Arm Band and Verbal (Name & ) Structural Data Admitted From: Home Planned Operative Procedure/s: Left Foot Nerve Decompression Consent for Planned Operative Procedure(s) Verified: Yes Verified Documents: Surgical Consent NPO Status Verified Time NPO: 00:00 Additional verifications Anesthesia Reactions: No Hx Blood Transfusions: No Blood Transfusion Reaction: No Airway Assessment C-Spine Mobility Assessed: Yes TMJ Mobility Assessed: Yes Dentition: Good Dentition Neurological Assessment Level of Consciousness: Awake, Alert and Appropriate Anesthesia Plan Anesthesia Risk discussed: Yes ASA Class: II Anesthesia Type: MAC w/Block
[2023-02-16 14:20] VITALS: TEMP 43
--- NOTE | 2023-02-16 14:20 | SUR.OPER ---
1410- FAMILY UPDATED PER MD ORDER BY GILBERT MEJIA
--- NOTE | 2023-02-16 15:27 | EXP.OP.NOTE ---
Date of procedure: 02/16/23 Pre-op Diagnosis:: Left tailor bunion Left toe contracture Left foot scar tissue Left peroneal tenosynovitis Post-op Diagnosis:: Same Procedure performed:: -Left partial excision metatarsal -Left HT 5 repair -Left 5th MPJ capsulotomy -Left soft tissue reconstruction of angluar toe deformity -Left peroneal synovectomy -Nerve decompression foot/toe -Revise complex surgical scar -Application of graft Surgeon:: Josie Sr DPM CLIENT SUPPORT ASSOCIATE:: Shahab Kerr Anesthesia: MAC and regional (L popliteal nerve block) Estimated blood loss (mL): 20 Clinical Note:: Patient is a 52-year-old male who underwent surgery 03/23/2022 for left foot tailor's bunionectomy, MPJ capsulotomy, fifth hammertoe with peroneus brevis allograft repair and peroneus longus tenosynovectomy.? Patient subsequently has complaints of thick scar tissue, neuritis could be from entrapped nerve or scar tissue buildup.? Recent x-rays and MRI shows postsurgical changes and peroneus longus and brevis tenodesis and tenosynovitis.?Conservative care has been exhausted included modification of activity/shoe gear, taping, strapping, inserts, ice, elevation, and NSAIDs. He has also tried immobilization in fracture boot, ankle bracing, steroid injections, topical compounding nerve pain cream and physical therapy. After a long discussion with the patient in regards to the conservative versus surgical treatment for the nerve pain, scar contracture deformity and prominent metatarsal head, the patient has elected to proceed with surgery because they have failed conservative treatment and continue to have pain and worsening symptoms affecting daily activities. The patient has been instructed on the planned procedure, all risk versus benefits of the procedure discussed.? These include but are not limited to: bleeding, infection, nerve and blood vessel damage, need for further surgery, delay in healing of soft tissue or bone, failure of bones to heal, non-union, mal-union, failure of the implant, prolonged pain and recovery, CPRS/RSD, DVT and anesthetic complications. No guarantees were given. All questions fully answered. The patient verbalized understanding and agreed to proceed with surgery. Written consent was obtained. Necessary labs and pre-op testing ordered: CBC, CMP, CXR, EKG. Rx for [place] 7.5mg, Zofran 4mg, Motrin 800mg given. Operative findings:: Significant scarring noted to the left MPJ. Some scar was debrided at the toe was able to maintain a neutral position. Bone irregularity noted to the fifth metatarsal head secondary to prior tailor's bunion surgery. No signs of infection. Scar tissue noted to the proximal incision over the peroneal tendons. Peroneal tenosynovitis noted with scarring and adhesions of the brevis to longus tendon. Operative note:: On this date and time patient was deemed an appropriate surgical candidate. With informed consent signed, anesthesia gave preop regional nerve block then the patient was taken to the operating theater. The patient was positioned supine. MAC anesthesia was induced. No tourniquet utilized. IV clindamycin given. The left lower extremity was prepped and draped in normal sterile fashion. Left partial excision metatarsal, 5th MPJ capsulotomy, nerve decompression foot/toe: Attention was directed to the left fifth MPJ where a linear incision was mapped out over the joint extending over the metatarsal shaft. Layered dissection through scar tissue. Nerve was noted to be entrapped in the scar tissue. The nerve was decompressed and released from scar tissue. The MPJ was then exposed and a capsulotomy was performed. [place]lamry elevator used to free up the plantar adhesions. There was increased range of motion immediately to the toe once the scar tissue was freed. Next a saw was used to transect the fifth metatarsal head which was sent to pathology. No signs of infection noted. Power rasp was then used to smooth down sharp edges so there we
[2023-02-16 15:40] VITALS: BP 130/78; PULSE 68; RESP 18; O2SAT 98
[2023-02-16 15:55] VITALS: BP 133/75; PULSE 69; RESP 18; TEMP 36.1; O2SAT 97
[2023-02-16 16:10] VITALS: BP 124/80; PULSE 68; RESP 18; O2SAT 96
== END 2023-02-16 16:10 | disposition home or self-care (01) ==
PROVIDERS: PCP Nurse Practitioner Family; Visit Provider Podiatrist
PROC: (CPT 28122; principal; 2023-02-16 13:00)
DX: M79.672 Pain in left foot (principal); M21.622 Bunionette of left foot; M20.42 Other hammer toe(s) (acquired), left foot; L91.0 Hypertrophic scar; M76.72 Peroneal tendinitis, left leg
CPT/HCPCS: 28122; 28285; 28086; 27658; 64704; 96374; J2405; Q4211

== ENCOUNTER → 2023-04-20 11:57 | Outpatient (CLI) | payer BC, SELFPAY ==
--- NOTE | 2023-04-20 12:04 | XR_ITS ---
FINAL REPORT CLINICAL HISTORY: foot pain FINDINGS: Left foot Three views were obtained. There is no acute fracture or dislocation. There are postoperative changes of the distal 5th metatarsal and distal 5th proximal phalanx. No soft tissue abnormality is identified. IMPRESSION: Postoperative changes as above. Reviewed, Interpreted and Dictated by Sam El III, MD Transcribed by Lyssa Rees Authenticated and [facility]
[2023-04-20 12:38] LABS: Basophils % 0.2 % (0.1-2.0); Eosinophils # 0.1 K/mm3 (0.0-0.4); Eosinophils % 0.5 % (0.1-12.0); Hematocrit 46.9 % (42.0-52.0); Lymphocytes # 2.3 K/mm3 (0.7-4.5); Lymphocytes % 20.7 % (10-50); Mean Corpuscular Hemoglobin 31.8 pg (27.0-31.2); Mean Corpuscular Volume 93.3 fl (80-94); Mean Platelet Volume 9.2 fl (7.4-10.4); Monocytes # 0.6 K/mm3 (0.1-1.0); Monocytes % 5.2 % (1.7-9.3); Neutrophils # 8.2 K/mm3 (1.8-7.8); Neutrophils % 73.4 % (37.0-80.0); Platelet Count 227 K/mm3 (142-424); Red Blood Count 5.02 M/mm3 (4.60-6.20); White Blood Count 11.1 K/mm3 (4.8-10.8)
[2023-04-20 13:20] LABS: Erythrocyte Sedimentation Rate 5 mm/hr (0-20)
[2023-04-20 13:46] LABS: Alanine Aminotransferase 29 U/L (12-78); Albumin Level 4.7 g/dl (3.5-5.0); Albumin/Globulin Ratio 1.8 (1.1-1.8); Alkaline Phosphatase 81 U/L (38-126); Aspartate Amino Transferase 25 U/L (17-59); Bilirubin,Total 0.7 mg/dl (0.2-1.3); Blood Urea Nitrogen 16 mg/dl (9-20); Calcium 9.3 mg/dl (8.4-10.2); Carbon Dioxide 25 mmol/L (22.0-30.0); Chloride 108 mmol/L (98-107); Estimated Glomerular Filt Rate 89 ml/min (>60); GFR (African American) 108 ML/MIN (>60); Globulin 2.6 g/dL (1.3-3.2); Glucose 117 mg/dl (74-100); Sodium 141 mmol/L (136-145); Total Protein,Serum 7.3 g/dl (6.3-8.2)
[2023-04-20 13:52] LABS: C-Reactive Protein 0.8 mg/L (0-4)
== END ==
PROVIDERS: PCP Nurse Practitioner Family; Visit Provider Podiatrist
DX: G89.18 Other acute postprocedural pain (principal); R60.0 Localized edema; Z98.890 Other specified postprocedural states
CPT/HCPCS: 36415; 73630; 80053; 85025; 85651; 86140

== ENCOUNTER 2023-07-11 18:08 | Emergency (ER) | payer OTHER, BC, SELFPAY ==
[2023-07-11 18:09] VITALS: BP 169/94; PULSE 70; RESP 18; TEMP 37.2; O2SAT 100; BMI 26.2
--- NOTE | 2023-07-11 18:26 | EXP.UTC ---
Discharge Plan Disposition Patient Disposition: Home, Self-Care Condition: Good Prescriptions Prescriptions: New cephalexin 500 mg capsule 500 mg PO QID Qty: 40 0RF mupirocin 2 % ointment 1 applic topical TID 7 Days Qty: 15 0RF No Action ibuprofen 800 mg tablet 800 mg PO BID Patient Comments: TAKE 1 TABLET BY MOUTH TWICE DAILY FOR MILD PAIN Referrals Follow up/Referrals: Patricia Shell APRN [Primary Care Provider] - See instructions Activity Restrictions/Add. Instructions Additional Instructions/Restrictions: Keep the wound clean and dry. Keep a dressing on it if you are going to be getting it dirty. Watch the wound for signs of infection, such as redness, swelling, drainage, fever. etc. Take tylenol or ibuprofen for pain. Follow up with your regular doctor. GO TO THE ER FOR ANY WORSENING SYMPTOMS OR CONCERNS. Clinical Impressions Clinical Impression: Laceration of right index finger, Need for Tdap vaccination Instructions Patient Instructions: Tetanus, Diphtheria, and Pertussis Vaccine, DI for Avulsion Laceration (Not Requiring Sutures) Discharge ED Provider: Yemi Wolfe [facility] General Stated complaint: WC 07/17@1300 RT index finger lac Time Seen by Provider: 07/11/23 18:26 History of Present Illness Provider Complaint: He states that, around 1:00 pm today, he was working on a machine at his work when a sharp piece of metal cut him on the right index finger. His tetanus immunization is not up to date. Related Data Home Medications Medication Instructions Recorded Confirmed ibuprofen 800 mg tablet 800 mg PO BID Pain 07/11/23 07/11/23 Previous Rx's Medication Instructions Recorded cephalexin 500 mg capsule 500 mg PO QID #40 caps 07/11/23 mupirocin 2 % topical ointment 1 applic topical TID 7 days #15 07/11/23 grams Allergies Allergy/AdvReac Type Severity Reaction Status Date / Time Penicillins Allergy Mild Verified 07/11/23 18:35 [facility] Disclaimer: The information contained in this section may have been updated after the patient was seen, as this information can be updated by other users. Medical History No significant past medical history Surgical History S/P foot surgery, left Family History Other Family history of cancer Social History Smoking Status: Never smoker alcohol intake: current substance use type: denies use current occupational status: employed Travel in the last 8 weeks: None caffeine: Yes ROS Obtained: Yes All systems reviewed & no additional complaints except as documented Constitutional Constitutional: Denies chills and Denies fever(s) Eyes Eyes: Denies eye discharge ENT Ears, Nose, Mouth, and Throat: Denies dizziness, Denies otalgia and Denies sore throat Cardiovascular Cardiovascular: Denies chest pain Respiratory Respiratory: Denies shortness of breath, Denies chest congestion, Denies cough, Denies stridor and Denies wheezing Gastrointestinal Gastrointestingal: Denies nausea or vomiting Musculoskeletal Musculoskeletal: Reports system reviewed and no additional complaints, except as documented and Denies arthralgias Integumentary/Breasts Skin/Breast: Reports as per HPI Neurologic Neurologic: Denies dizziness and Denies paresthesias Allergic/Immunologic Allergic/Immunologic: Denies wheezing Physical Exam General General appearance: alert and in no apparent distress Head Head exam: atraumatic, normocephalic and normal inspection Eye Eye exam: Present normal appearance, PERRL and EOMI ENT ENT exam: Present normal exam, normal oropharynx, mucous membranes moist, TM's normal bilaterally and normal external ear exam Neck Neck exam: Present normal inspection, full ROM and t
[2023-07-11 19:42] VITALS: BP 169/94; PULSE 70; RESP 18; TEMP 37.2; O2SAT 100
== END 2023-07-11 19:42 | disposition home or self-care (01) ==
PROVIDERS: Emergency Provider Nurse Practitioner Family; PCP Nurse Practitioner Family
DX: S61.210A Laceration without foreign body of right index finger without damage to nail, initial encounter (principal); Z23 Encounter for immunization; W26.8XXA Contact with other sharp object(s), not elsewhere classified, initial encounter
CPT/HCPCS: 90715; 96372; 99212; 99214; G0463

== ENCOUNTER → 2023-07-13 08:02 | Outpatient (CLI) | payer BC, SELFPAY ==
--- NOTE | 2023-07-13 08:13 | XR_ITS ---
FINAL REPORT CLINICAL HISTORY: left foot post-op FINDINGS: LEFT FOOT: Three views of the left foot were obtained. There are postoperative changes from resection of the distal fifth metatarsal. There is no acute fracture or dislocation. The joint spaces are intact. There is no soft tissue abnormality. IMPRESSION: Postoperative changes with no acute bony abnormality. Reviewed, Interpreted and Dictated by Sam El III, MD Transcribed by Fabby Hawk Authenticated and [facility]
== END ==
PROVIDERS: PCP Nurse Practitioner Family; Visit Provider Podiatrist
DX: M79.672 Pain in left foot (principal); Z98.890 Other specified postprocedural states
CPT/HCPCS: 73630

== ENCOUNTER 2023-12-28 08:53 | Outpatient (CLI) | payer BC, SELFPAY ==
[2023-12-28 10:28] LABS: Alanine Aminotransferase 30 U/L (12-78); Albumin Level 4.5 g/dl (3.5-5.0); Albumin/Globulin Ratio 1.7 (1.1-1.8); Alkaline Phosphatase 62 U/L (38-126); Anion Gap 11.2 mEq/L (5-15); Aspartate Amino Transferase 31 U/L (17-59); Bilirubin,Total 0.6 mg/dl (0.2-1.3); Blood Urea Nitrogen 20 mg/dl (9-20); Calcium 9.1 mg/dl (8.4-10.2); Carbon Dioxide 26 mmol/L (22.0-30.0); Chloride 107 mmol/L (98-107); Estimated Glomerular Filt Rate 89 ml/min (>60); GFR (African American) 107 ML/MIN (>60); Globulin 2.7 g/dL (1.3-3.2); Glucose 105 mg/dl (74-100); Potassium 4.2 mmoL/L (3.5-5.1); Sodium 140 mmol/L (136-145); Total Protein,Serum 7.2 g/dl (6.3-8.2)
[2023-12-28 10:33] LABS: C-Reactive Protein 1.2 mg/L (0-4)
[2023-12-28 10:41] LABS: Basophils # 0.1 K/mm3 (0-0.2); Basophils % 0.6 % (0.1-2.0); Eosinophils % 0.3 % (0.1-12.0); Hematocrit 50.4 % (42.0-52.0); Hemoglobin 16.5 g/dL (14.1-18.0); Lymphocytes # 2.1 K/mm3 (0.7-4.5); Lymphocytes % 27.9 % (10-50); Mean Corpuscular HGB Conc 32.6 g/dL (31.8-35.4); Mean Corpuscular Hemoglobin 33.4 pg (27.0-31.2); Mean Corpuscular Volume 102.4 fl (80-94); Mean Platelet Volume 9.7 fl (7.4-10.4); Monocytes # 0.4 K/mm3 (0.1-1.0); Monocytes % 5.2 % (1.7-9.3); Neutrophils % 65.9 % (37.0-80.0); Platelet Count 219 K/mm3 (142-424); Red Blood Count 4.92 M/mm3 (4.60-6.20); Red Cell Distribution Width 13.3 % (11.5-17.5); White Blood Count 7.7 K/mm3 (4.8-10.8)
[2023-12-28 10:57] LABS: Thyroid Stimulating Hormone 0.62 uIU/mL (0.465-4.68)
[2023-12-28 11:20] LABS: Erythrocyte Sedimentation Rate 5 mm/hr (0-20)
[2023-12-28 11:33] LABS: Vitamin B12 271 pg/mL (239-931)
[2023-12-28 11:56] LABS: Folate 8.55 ng/mL
[2023-12-28 13:21] LABS: Hemoglobin A1C 5.2 % (4.0-6.0)
== END 2023-12-28 23:59 ==
PROVIDERS: PCP Nurse Practitioner; Visit Provider Podiatrist
DX: M79.672 Pain in left foot (principal); Z98.890 Other specified postprocedural states; T81.40XA Infection following a procedure, unspecified, initial encounter; R73.9 Hyperglycemia, unspecified; M79.2 Neuralgia and neuritis, unspecified
CPT/HCPCS: 36415; 80053; 82607; 82746; 83036; 84443; 85025; 85651; 86140

== ENCOUNTER 2024-03-20 08:52 | Outpatient (POV) | payer BC, SELFPAY ==
[2024-03-20 09:36] VITALS: BP 137/87; PULSE 84; RESP 18; O2SAT 98; BMI 26.0
--- NOTE | 2024-03-20 10:07 | A.OFFVIS_ITS ---
HPI Data of Consult Patient: new to practice Consult date: 03/20/24 Requesting Physician: Margot Cervantes APRN Consult Narrative Reason for consult: Left ankle/foot pain History of present illness: Mr. Downing is a 53 year old male who presents today as a new patient. He is a referral from Dr. Sr's office. Today he rates his pain a 7 out of 10. Patient states his pain is all in his left foot and ankle area. Patient states it is a burning, tingling sensation that runs along the back of his ankle and the lateral side and goes under his foot. Patient states this is been going on since having surgery. Patient states he ended up having the initial surgery in March 2022 that where he had a bunionectomy and they found a torn tendon and repaired it. Patient states he ended up having to go through a second surgery in February 2023 where they removed some scar tissue and did some grafting. Patient states that he has continued to have chronic pain in this area but is never gone away. Patient has had physical therapy however states it made no change. Patient has also tried compounded cream from Dr. Sr's office along with ultrasound devices. Patient has also bought custom insoles however it is never made a difference. Patient did have injections in the past however he states these were very temporary however the injections were only in and around his big toe along the lateral side. Patient states he is interested in any help we may be able to provide. He states the pain is worse with increased activity and that he frequently works 12-hour shifts and he is in misery after these long days. Patient has been prescribed ibuprofen and gabapentin and states he cannot take the gabapentin when he works the 12-hour shifts because it causes too much drowsiness. His Maged has been reviewed and is appropriate. CC: Margot Cervantes APRN [facility] Disclaimer: The information contained in this section may have been updated after the patient was seen, as this information can be updated by other users. Medical History No significant past medical history Surgical History S/P foot surgery, left Family History Other Family history of cancer Social History (Updated 03/20/24 @ 09:37 by Pauline Nicholson RN) Smoking Status: Never smoker alcohol intake: current alcohol intake frequency: holidays/special occasions only substance use type: denies use current occupational status: employed Travel in the last 8 weeks: None caffeine: Yes Review of Systems Review of Systems Review of systems:: pertinent systems reviewed and negative unless documented below Review of systems (narrative): Review of Systems: General: No recent weight changes, no fever, no sleep disturbances Respiratory: No cough, no shortness of air, no recurring pulmonary infections Cardiovascular/peripheral vascular: No chest pain, no palpitations, no edema, no shortness of breath Gastrointestinal: No new onset incontinence, normal bowel movements reported Genitourinary: No new onset incontinence Musculoskeletal: Left ankle/foot pain Psychiatric: [Normal mood/affect] Neurological: [Denies weakness in extremities], [denies balance issues] Meds Home Medications and Allergies Home Medications Medication Instructions Recorded Confirmed Type ibuprofen 800 mg tablet 800 mg PO BID Pain 07/11/23 03/20/24 History gabapentin 100 mg capsule 100 mg PO TID PRN nerve pain 30 02/22/24 03/20/24 Rx days #90 caps New Prescriptions to Start Prescriptions: Allergies Allergy/AdvReac Type Severity Reaction Status Date / Time Penicillins Allergy Mild Verified 12/28/23 08:20 Objective Vital signs: Pulse Resp BP Pulse Ox O2 Del Method 84 18 137/87 98 Room Air 03/20/24 09:36 03/20/24 09:36 03/20/24 09:36 03/20/24 09:36 03/20/24 09:36 Narrative: Physical Exam: General: Alert and oriented x3, no acute distress, pleasant and cooperative Lungs: Respirations even and unlabored, symmetrical chest expansion Eyes: PERRL Musculoskeletal: Flexion and extension of left ankle somewhat guarded secondary to pain Neurological: Speech clear, no gross sensory deficit Additional findings Additional findings: FINDINGS: LEFT FOOT: Three views of the left foot were obtained. There are postoperative changes from resection of the distal fifth metatarsal. There is no acute fracture or dislocation. The joint spaces are intact. There is no soft tissue abnormality. IMPRESSION: Postoperative changes with no acute bony abnormality. Reviewed, Interpreted and Dictated by Sam El III, MD Transcribed by Fabby Hawk Authenticated and . [facility] FINAL REPORT CLINICAL HISTORY: Left foot pain 5th digit pain and unable to move pain on lateral aspect of foot from mid foot towards heel prior surgery last year COMPARISON: 07/13/2022 FINDINGS: Multiplanar MR imaging of the left foot was performed without contrast. There are postoperative changes in the 5th metatarsal head and 5th proximal phalanx. The bony structures are intact without evidence of fracture, bone bruise or marrow edema. There is peroneus longus and brevis tendinosis and tenosynovitis at the level of the lateral malleolus. No ligamentous injury is identified. The musculature is intact. The plantar aponeurosis is intact. No soft tissue mass or cyst is identified. IMPRESSION: Postoperative changes as above. Peroneus longus and brevis tendinosis and tenosynovitis. Reviewed, Interpreted and Dictated by Sam El III, MD Transcribed by Lyssa Rees Authenticated and . [facility] Assessment and Plan *Assessment and plan (1) Complex regional pain syndrome of left lower extremity: Status: Acute Qualifiers: Complex regional pain syndrome type: type II (causalgia) Qualified Code(s): G57.72 - Causalgia of left lower limb Category: Medical Code(s): G90.522 - Complex regional pain syndrome I of left lower limb (2) Left foot pain: Status: Acute Category: Medical Code(s): M79.672 - Pain in left foot Plan Patient is experiencing chronic pain in and around the back of his left ankle that radiates along the lateral side of his left foot. I have discussed with the patient that he may benefit from injection therapy such as a nerve block. Patient does have consistent findings that correlate with complex regional pain syndrome. I have also discussed with patient in future he may be a beneficial candidate for peripheral nerve stimulator. I will follow-up with this at future visits. Will order the patient a compounded cream from our office. Patient has tried and failed conservative therapy. Patient will be submitted for a left sural nerve block. Patient has been instructed to contact the clinic with any concerns before the next appointment. Dr. Argueta has reviewed this note and agrees with this plan of care. This note was dictated using voice recognition software and make contain errors or omissions.
== END 2024-03-20 23:59 | disposition home or self-care (01) ==
LOC: SC.PAIN 08:53
PROVIDERS: Visit Provider Nurse Practitioner Family
DX: G57.72 Causalgia of left lower limb (principal); M79.672 Pain in left foot
CPT/HCPCS: 99202; G0463

== ENCOUNTER 2024-04-09 09:12 | Day surgery (SDC) | payer BC, SELFPAY ==
[2024-04-09 09:27] VITALS: BP 172/95; PULSE 73; RESP 18; TEMP 36.7; O2SAT 97; BMI 25.7
[2024-04-09 09:30] VITALS: BP 152/90; PULSE 78; RESP 18; O2SAT 98
[2024-04-09] MEDS: BUPIVACAINE 0.25% 10ML INJ 25 MG IJ (09:30)
[2024-04-09] MEDS: methylPREDNISolone ACETATE 80MG/ML VIAL 80 MG (09:30)
[2024-04-09] MEDS: LIDOCAINE 1% 5ML PF VIAL 5 ML (09:30)
[2024-04-09 09:32] VITALS: BP 152/90; PULSE 78; RESP 18; O2SAT 98
--- NOTE | 2024-04-09 09:37 | EXP.PAIN.PRO ---
Procedure Date: 04/09/24 Time: 09:10 Anesthesiologist:: Juan Alberto Vang CRNA Complications:: None Pre-procedure Diagnosis:: CRPS type I left lower leg. Chronic left foot pain. Post-procedure Diagnosis:: Same. Indications for Procedure:: Patient is a pleasant 53-year-old male that comes our clinic today for left sural nerve block. Patient status post 2 separate left lateral foot surgeries in the last year. He continues to have left lateral border foot pain. He rates his pain 7/10. Patient is ambulatory. Procedure Details:: Details of the procedure explained to the patient. The patient taken procedure and placed in the right lateral decubitus position. The left lateral ankle was cleansed using chlorhexidine as a cleansing solution. Using a 25-gauge needle the area posterior to the left lateral malleolus was accessed with ease.. After negative aspiration 3 cc of a solution containing 40 mg of Depo-Medrol +1 mL of 1% lidocaine +1 mL of 0.25% Marcaine was injected incrementally. Patient tolerated procedure without difficulty. No complications. Plan and Disposition:: Patient was reevaluated 10 minutes post procedure. Patient reports ambulation with no pain in the left foot.
[2024-04-09 09:39] VITALS: BP 143/80; PULSE 71; RESP 18; O2SAT 98
== END 2024-04-09 09:41 | disposition home or self-care (01) ==
LOC: SC.PAINP 09:12
PROVIDERS: PCP Nurse Practitioner; Visit Provider Nurse Anesthetist, Certified Registered
DX: M79.672 Pain in left foot (principal)
CPT/HCPCS: 64450; 77002; J1010

== ENCOUNTER 2024-05-02 11:01 | Outpatient (POV) | payer BC, SELFPAY ==
--- OUTSIDE RECORDS SUMMARY | 2024-05-02 11:03 | XMS_ITS ---
Author Organization [facility] , [facility] Address [address] [place] [address] Phone Care Team Providers [employer] Clerk Name Role Phone JOHN VARGAS Primary Care Provider [phone] Stuart Ortiz DPM Unavailable [phone] Plan of Treatment No Plan of Treatment Recorded Assessments Includes: Assessments for all patient encounters No Assessments Recorded Medical Equipment - Implanted Devices Includes: Current and historical Devices No Medical Equipment Recorded Medications Administered Includes: Administered Medications in patient's chart No Administered Medications Recorded Results Includes: Results from 05/02/2023 through 05/02/2024 No Results Recorded For Specified Dates History of Present Illness History of Present Illness not supported for this document type No History of Present Illness Recorded Social History No Social History Recorded - Smoking Status Unknown Medical History Includes: Medical History in patient's chart No Medical History Recorded Family History Includes: Family History in patient's chart No Family History Recorded Review of Systems Review of Systems not supported for this document type No Review of Systems Recorded Mental Status No Mental Status Recorded Functional Status No Functional Status Recorded Physical Exam Physical Exam not supported for this document type No Physical Exam Recorded Insurance Includes: Active Insurance Policies Plan Name Member ID Group # Subscriber Relationship Effect gen[place] [facility]ates [id number] Shena Downing Clinical Notes Includes: Signed Clinical Notes starting from 09/22/2022 No Clinical Notes Recorded
[2024-05-02 11:19] VITALS: BP 132/77; PULSE 74; RESP 18; TEMP 36.8; O2SAT 98; BMI 26.0
--- NOTE | 2024-05-02 11:53 | A.OFFVIS_ITS ---
[facility] Disclaimer: The information contained in this section may have been updated after the patient was seen, as this information can be updated by other users. Medical History No significant past medical history Surgical History S/P foot surgery, left Family History Other Family history of cancer Social History Smoking Status: Never smoker alcohol intake: current alcohol intake frequency: holidays/special occasions only substance use type: denies use current occupational status: other Travel in the last 8 weeks: None caffeine: Yes PM Subjective & Objective Subjective Subjective:: Patient is a pleasant 54-year-old male who returns for follow-up of the left sural nerve block on 04/09/2024. Today he rates his pain a 2 out of 10. Patient does state that he got significant improvement with this injection and that on the first day was at least 70% relief. He does state over the last couple of weeks it has decreased on how much improvement going towards 50% and rating it today more of 30%. Patient does state that he will still have an occasional burning and throbbing that is worse with increased activity however he does feel like it is better than what it was prior. He states that he feels like he can do a little bit more activity before the pain starts increasing. Patient does work a 12-hour job and feels like this plays a role in his constant pain. Patient did try the compounded cream however he states he really did not notice significant relief with this. His Maged has been reviewed and is appropriate. Review of Systems: General: No recent weight changes, no fever, no sleep disturbances Respiratory: No cough, no shortness of air, no recurring pulmonary infections Cardiovascular/peripheral vascular: No chest pain, no palpitations, no edema, no shortness of breath Gastrointestinal: No new onset incontinence, normal bowel movements reported Genitourinary: No new onset incontinence Musculoskeletal: Left foot pain Psychiatric: [Normal mood/affect] Neurological: [Denies weakness in extremities], [denies balance issues] Pain at rest (0-10 scale): 2 Objective Objective:: Physical Exam: General: Alert and oriented x3, no acute distress, pleasant and cooperative Lungs: Respirations even and unlabored, symmetrical chest expansion Eyes: PERRL Musculoskeletal: Flexion and extension of left ankle somewhat guarded secondary to pain, [antalgic gait noted] Neurological: Speech clear, no gross sensory deficit Has patient had previous pain injection?: Yes Percent improvement in pain since last injection: 70% Conservative treatment options previously tried: Home exercise plan Length of treatment: Longer than 6 weeks and Prescription medications Length of treatment: Longer than 6 weeks Meds Home Medications and Allergies Home Medications ?Medication ?Instructions ?Recorded ?Confirmed ?Type ibuprofen 800 mg tablet 800 mg PO BID Pain 07/11/23 04/09/24 History gabapentin 100 mg capsule 100 mg PO TID PRN nerve pain 30 02/22/24 04/09/24 Rx days #90 caps New Prescriptions to Start Prescriptions: Allergies Allergy/AdvReac Type Severity Reaction Status Date / Time Penicillins Allergy Mild Verified 04/09/24 09:29 Assessment and Plan *Assessment and plan (1) Complex regional pain syndrome of left lower extremity: Status: Acute Qualifiers: Complex regional pain syndrome type: type II (causalgia) Qualified Code(s): G57.72 - Causalgia of left lower limb Category: Medical Code(s): G90.522 - Complex regional pain syndrome I of left lower limb Plan Patient has had significant improvement following this injection and does not require any additional interventions at this time. Patient will return to clinic 2 months for reevaluation of symptoms and plan of care. patient has been instructed to contact the clinic with any concerns before the n ext appointment. Dr. Argueta has reviewed this note and agrees with this plan of care. This note was dictated using voice recognition software and make contain errors or omissions. All injections are used with Lidocaine or Bupivacaine and Depo Medrol.
== END 2024-05-02 23:59 | disposition home or self-care (01) ==
LOC: SC.PAIN 11:02
PROVIDERS: PCP Nurse Practitioner; Visit Provider Nurse Practitioner Family
DX: G57.72 Causalgia of left lower limb (principal)
CPT/HCPCS: 99212; G0463

== ENCOUNTER 2024-09-06 08:01 | Emergency (ER) | payer BC, SELFPAY ==
[2024-09-06 08:20] VITALS: BP 150/99; PULSE 76; RESP 20; TEMP 36.8; O2SAT 97; BMI 26.0
--- NOTE | 2024-09-06 08:21 | EXP.UTC ---
Discharge Plan Disposition Patient Disposition: Home, Self-Care Condition: Good Prescriptions Prescriptions: New promethazine-DM 6.25-15 mg/5 mL Syrup 5 ml PO Q6H PRN (Reason: Cough) Qty: 240 0RF benzonatate 100 mg capsule 100 mg PO TIDP PRN (Reason: Cough) Qty: 30 0RF cefdinir 300 mg capsule 300 mg PO BID Qty: 20 0RF methylprednisolone 4 mg Tablets,Dose Pack 4 mg PO DIRECTED 6 Days Qty: 21 0RF Rx Instructions: Take 1 pack as directed for 6 days Referrals Follow up/Referrals: Nadiya Verma APRN [Primary Care Provider] - See instructions Activity Restrictions/Add. Instructions Additional Instructions/Restrictions: Drink plenty of fluids. Take tylenol or ibuprofen for pain or fever. Take the medications as directed. Follow up with your regular doctor. GO TO THE ER FOR ANY WORSENING SYMPTOMS Don't start the oral steroids (medrol dose pack) until tomorrow since you had the steroid shot here Clinical Impressions Clinical Impression: Sinusitis Qualifiers: Sinusitis location: unspecified location Chronicity: unspecified Qualified Code(s): J32.9 - Chronic sinusitis, unspecified Instructions Patient Instructions: Sinusitis, DI for Sinusitis, Dexamethasone Injection Print Language Print Language: Icelandic Discharge ED Provider: Yemi Wolfe [facility] General Stated complaint: sinus congestion Time Seen by Provider: 09/06/24 08:21 Related Data Previous Rx's ?Medication ?Instructions ?Recorded benzonatate 100 mg capsule 100 mg PO TIDP PRN Cough #30 caps 09/06/24 cefdinir 300 mg capsule 300 mg PO BID #20 caps 09/06/24 methylprednisolone 4 mg tablets in 4 mg PO DIRECTED 6 days #21 tabs 09/06/24 a dose pack promethazine-DM 6.25 mg-15 mg/5 mL 5 ml PO Q6H PRN Cough #240 mL 09/06/24 oral syrup Allergies Allergy/AdvReac Type Severity Reaction Status Date / Time Penicillins Allergy Mild Verified 04/09/24 09:29 [facility] Disclaimer: The information contained in this section may have been updated after the patient was seen, as this information can be updated by other users. Medical History No significant past medical history Surgical History S/P foot surgery, left Family History Other Family history of cancer Social History Smoking Status: Never smoker alcohol intake: current alcohol intake frequency: holidays/special occasions only substance use type: denies use current occupational status: other caffeine: Yes ROS Obtained: Yes All systems reviewed & no additional complaints except as documented Constitutional Constitutional: Reports poor appetite Eyes Eyes: Reports system reviewed and no additional complaints, except as documented ENT Ears, Nose, Mouth, and Throat: Reports as per HPI Cardiovascular Cardiovascular: Reports system reviewed and no additional complaints, except as documented and Denies chest pain Respiratory Respiratory: Denies shortness of breath, Denies chest congestion, Reports cough, Denies stridor and Denies wheezing Gastrointestinal Gastrointestingal: Reports system reviewed and no additional complaints, except as documented; Denies abdominal pain, diarrhea or vomiting Musculoskeletal Musculoskeletal: Reports system reviewed and no additional complaints, except as documented and Denies arthralgias Integumentary/Breasts Skin/Breast: Reports system reviewed and no additional complaints, except as documented and Denies rash Neurologic Neurologic: Denies paresthesias Allergic/Immunologic Allergic/Immunologic: Denies wheezing Physical Exam General General appearance: alert and in no apparent distress Eye Eye exam: Present normal appearance, PERRL and EOMI ENT ENT exam: Present mucous membranes moist and normal external ear exam Expanded ENT Exam External ear exam: Present normal external inspection TM/Canal exam: Bilateral TM: erythema and bulging Nose exam: Absent sinus tenderness Nasal speculum exam: Bilateral: normal Mouth exam: Present normal external inspection; Absent drooling Teeth exam: Present normal inspection Throat exam: Present tonsillar erythema and tonsillomegaly Neck Neck exam: Present normal inspection, full ROM and trachea midline; Absent tenderness, lymphadenopathy or thyromegaly Chest Chest inspection: Present normal inspection and symmetric chest wall rise; Absent tenderness or rash Respiratory Respiratory exam: Present normal lung sounds bilaterally; Absent respiratory distress, wheezes, stridor or accessory muscle use Cardiovascular Cardiovascular exam: Present regular rate, normal rhythm and normal heart sounds Abdominal Exam Abdominal exam: Present soft; Absent distention, tenderness, guarding, rebound or rigidity Extremities Exam Extremities exam: Present normal inspection, full ROM and normal capillary refill; Absent tenderness or calf tenderness Back Exam Back exam: Present normal inspection and full ROM; Absent tenderness Neurological Exam Neurological exam: Present alert and oriented X3 Psychiatric Psychiatric exam: Present normal affect and normal mood Skin Skin exam: Present warm, dry, intact and normal color Lymphatic Lymphatic Findings: no adenopathy Medical Decision Making Medical Records Medical records reviewed: No I reviewed the patient's medical records. Screening: Per USPSTF and CDC recommendations, given the prevalence of disease in our region, it is our hospital?s policy to screen for HIV and viral Hepatitis for all patients aged 18 and over and those with ongoing risk factors. Maged Inquiry Pt receiving controlled substance: No
[2024-09-06] MEDS: DEXAMETHASONE 4MG/ML 1ML VIAL 10 MG IM (08:37)
[2024-09-06 08:52] VITALS: BP 150/99; PULSE 76; RESP 20; TEMP 36.8
== END 2024-09-06 08:55 | disposition home or self-care (01) ==
PROVIDERS: Emergency Provider Nurse Practitioner Family; PCP Nurse Practitioner
DX: J32.9 Chronic sinusitis, unspecified (principal); R05.9 Cough, unspecified; R63.8 Other symptoms and signs concerning food and fluid intake
CPT/HCPCS: 99212; G0381; J1100

== ENCOUNTER 2024-09-15 23:25 | Emergency (ER) | payer BC, SELFPAY ==
[2024-09-15 23:26] VITALS: BP 177/107; PULSE 73; RESP 16; TEMP 36.8; O2SAT 98; BMI 26.0
--- NOTE | 2024-09-15 23:30 | XR_ITS ---
PROCEDURE INFORMATION: Exam: XR Chest Exam date and time: 09/15/2024 11:36 PM Age: 54 years old Clinical indication: Pain; Chest pressure; Additional info: Left chest pain TECHNIQUE: Imaging protocol: Radiologic exam of the chest. Views: 1 view. COMPARISON: CR XR CHEST 2V 02/13/2023 11:11 AM FINDINGS: Lungs: No evidence of acute pulmonary disease or infiltrates Pleural spaces: No large effusion or pneumothorax. Heart/Mediastinum: Stable cardiac and mediastinal contours. Diaphragm: There is elevation of the right hemidiaphragm. Bones/joints: No evidence of acute osseous abnormalities within the visualized portions of the thoracic spine and ribs. Osseous structures appear appropriate for patient age. IMPRESSION: No dense parenchymal consolidation, pleural effusion, or pneumothorax.
--- NOTE | 2024-09-15 23:30 | ECG_ITS ---
APPROVED REPORT Exam: Resting ECG HR:74 bpm ECG Measurements Heart Rate 74 AXES ND 116 P 57 QRSd 94 QRS 76 QT 378 T 43 QTc 405 Conclusion SINUS RHYTHM WITH SHORT ND INTERVAL BORDERLINE ECG UNCONFIRMED REPORT Electronically signed by : DALE VIEYRA, 09/17/2024 06:42:15
[2024-09-15 23:31] VITALS: PULSE 72; RESP 12; O2SAT 98
[2024-09-15] MEDS: ASPIRIN 81MG CHEWABLE TABLET 324 MG PO (23:33)
[2024-09-15 23:42] LABS: Basophils # 0.1 K/mm3 (0-0.2); Basophils % 1.2 % (0.1-2.0); Eosinophils # 0.1 K/mm3 (0.0-0.4); Eosinophils % 0.6 % (0.1-12.0); Hematocrit 48.1 % (42.0-52.0); Hemoglobin 16.7 g/dL (14.1-18.0); Lymphocytes % 44.9 % (10-50); Mean Corpuscular HGB Conc 34.8 g/dL (31.8-35.4); Mean Corpuscular Hemoglobin 33.1 pg (27.0-31.2); Mean Platelet Volume 8.4 fl (7.4-10.4); Monocytes # 0.6 K/mm3 (0.1-1.0); Monocytes % 6.7 % (1.7-9.3); Neutrophils # 4.1 K/mm3 (1.8-7.8); Neutrophils % 46.6 % (37.0-80.0); Platelet Count 256 K/mm3 (142-424); Red Blood Count 5.06 M/mm3 (4.60-6.20); Red Cell Distribution Width 13.5 % (11.5-17.5); White Blood Count 8.8 K/mm3 (4.8-10.8)
[2024-09-15 23:45] VITALS: PULSE 69; RESP 14; O2SAT 98
--- NOTE | 2024-09-15 23:45 | ED_ITS ---
Discharge Plan Disposition Patient Disposition: Home, Self-Care Condition: Good Prescriptions Prescriptions: No Action promethazine-DM 6.25-15 mg/5 mL Syrup 5 ml PO Q6H PRN (Reason: Cough) Qty: 240 0RF benzonatate 100 mg capsule 100 mg PO TIDP PRN (Reason: Cough) Qty: 30 0RF cefdinir 300 mg capsule 300 mg PO BID Qty: 20 0RF methylprednisolone 4 mg Tablets,Dose Pack 4 mg PO DIRECTED 6 Days Qty: 21 0RF Rx Instructions: Take 1 pack as directed for 6 days Referrals Follow up/Referrals: Man Flores MD [Staff Physician] - See instructions Provider,MD Hamzah [Primary Care Provider] - See instructions Activity Restrictions/Add. Instructions Additional Instructions/Restrictions: Please follow-up with your primary care provider. Consider follow-up with cardiology. Please return to the emergency department if you develop any new or worsening symptoms or become concerned for your health. Clinical Impressions Clinical Impression: Chest pain, HTN (hypertension) Print Language Print Language: [place] Discharge ED Provider: Abundio Costello Adult HPI General Chief complaint: Chest Pain Stated complaint: Chest Pain Time Seen by Provider: 09/15/24 23:30 Mode of Arrival: Ambulatory Source of Information: Patient Limitations: No Limitations Description of Symptoms (Recalled from ER Triage Doc. by RN): Patient complains of left sided chest pains. States it began around 3 hours [employer]. The pain comes and goes and is a stabbing pain. No cardiac history. History of Present Illness HPI narrative: 58-year-old male with no significant past medical history presents for sided chest pain. Reports that been going on for approximately 3 hours. It is very intermittent in nature. It is sharp and shoots across to the shoulder. Does not last for more than a few seconds at a time. Denies any pain with deep breathing, no shortness of breath, no recent fever or illness besides a sinus infection. No cardiac history. No recent trauma, surgery, immobilization, no history of PE or DVT. Related Data Previous Rx's ?Medication ?Instructions ?Recorded benzonatate 100 mg capsule 100 mg PO TIDP PRN Cough #30 caps 09/06/24 cefdinir 300 mg capsule 300 mg PO BID #20 caps 09/06/24 methylprednisolone 4 mg tablets in 4 mg PO DIRECTED 6 days #21 tabs 09/06/24 a dose pack promethazine-DM 6.25 mg-15 mg/5 mL 5 ml PO Q6H PRN Cough #240 mL 09/06/24 oral syrup Allergies Allergy/AdvReac Type Severity Reaction Status Date / Time Penicillins Allergy Mild Verified 04/09/24 09:[address] [facility] Disclaimer: The information contained in this section may have been updated after the patient was seen, as this information can be updated by other users. Medical History No significant past medical history Surgical History S/P foot surgery, left Family History Other Family history of cancer Social History Smoking Status: Never smoker alcohol intake: current alcohol intake frequency: holidays/special occasions only substance use type: denies use current occupational status: other Travel in the last 8 weeks: None caffeine: Yes Other Medical History Have you received the Flu Vaccine for this season: No Have you received the Pneumonia Vaccine: No ROS Obtained: Yes All systems reviewed & no additional complaints except as documented Physical Exam General General appearance: alert and in no apparent distress Head Head exam: atraumatic and normocephalic Eye Eye exam: Present normal appearance, PERRL and EOMI ENT ENT exam: Present normal oropharynx and normal external ear exam Neck Neck exam: Present normal inspection and full ROM Chest Chest inspection: Present normal inspection and symmetric chest wall rise; Absent tenderness Respiratory Respiratory exam: Present normal lung sounds bilaterally; Absent respiratory distress Cardiovascular Cardiovascular exam: Present regular rate and normal rhythm Abdominal Exam Abdominal exam: Present soft; Absent distention, tenderness or guarding Extremities Exam Extremities exam: Present normal inspection; Absent edema or joint swelling Back Exam Back exam: Present normal inspection; Absent tenderness Neurological Exam Neurological exam: Present alert and oriented X3; Absent motor sensory deficit Psychiatric Psychiatric exam: Present normal affect and normal mood Skin Skin exam: Present warm, dry and normal color Lymphatic Lymphatic Findings: no adenopathy Medical Decision Making Medical Records Medical records reviewed: Yes I reviewed the patient's medical records. Screening: Per USPSTF and CDC recommendations, given the prevalence of disease in our region, it is our hospital?s policy to screen for HIV and viral Hepatitis for all patients aged 18 and over and those with ongoing risk factors. Maged Inquiry Pt receiving controlled substance: No Maged was queried for this patient: No Vital Signs: 09/15/24 23:26 09/15/24 23:31 09/15/24 23:45 Temperature 98.3 F Temperature Source Oral Pulse Rate 72 69 Pulse Rate [Right Radial] 73 Respiratory Rate 16 12 14 Blood Pressure Blood Pressure [Right Arm] 177/107 H Blood Pressure Mean [Right Arm] 130 Blood Pressure Source Blood Pressure Source [Right Arm] Automatic Cuff Blood Pressure Position Blood Pressure Position [Right Arm] Supine 02 Sat by Pulse Oximetry 98 98 98 Oxygen Delivery Method Room Air 09/15/24 23:50 09/16/24 00:00 09/16/24 00:07 Temperature Temperature Source Pulse Rate 76 73 76 Pulse Rate [Right Radial] Respiratory Rate 11 L 8 L Blood Pressure 151/102 H 141/100 H Blood Pressure [Right Arm] Blood Pressure Mean [Right Arm] Blood Pressure Source Blood Pressure Source [Right Arm] Blood Pressure Position Blood Pressure Position [Right Arm] 02 Sat by Pulse Oximetry 97 98 Oxygen Delivery Method 09/16/24 00:47 09/16/24 01:00 09/16/24 01:30 Temperature Temperature Source Pulse Rate 67 64 63 Pulse Rate [Right Radial] Respiratory Rate 14 12 12 Blood Pressure 157/106 H 134/90 140/92 H Blood Pressure [Right Arm] Blood Pressure Mean [Right Arm] Blood Pressure Source Blood Pressure Source [Right Arm] Blood Pressure Position Blood Pressure Position [Right Arm] 02 Sat by Pulse Oximetry 97 98 95 Oxygen Delivery Method 09/16/24 02:01 Temperature 97.9 F Temperature Source Oral Pulse Rate 74 Pulse Rate [Right Radial] Respiratory Rate 16 Blood Pressure 128/90 Blood Pressure [Right Arm] Blood Pressure Mean [Right Arm] Blood Pressure Source Automatic Cuff Blood Pressure Source [Right Arm] Blood Pressure Position Supine Blood Pressure Position [Right Arm] 02 Sat by Pulse Oximetry Oxygen Delivery Method Room Air Lab Data Lab results reviewed: Yes I reviewed the patient's lab results. Lab Results 09/15/24 23:29: WBC 8.8, RBC 5.06, Hgb 16.7, Hct 48.1, MCV 95.0 H, MCH 33.1 H, MCHC 34.8, RDW 13.5, Plt Count 256, MPV 8.4, Neut % (Auto) 46.6, Lymph % (Auto) 44.9, [place] % (Auto) 6.7, Eos % (Auto) 0.6, Baso % (Auto) 1.2, Neut # (Auto) 4.1, Lymph # (Auto) 4.0, [place] # (Auto) 0.6, Eos # (Auto) 0.1, Baso # (Auto) 0.1, D- Dimer 0.57 H, Sodium 138, Potassium 3.6, Chloride 103, Carbon Dioxide 27, Anion Gap 11.6, BUN 23 H, Creatinine 0.90, Estimated Creat Clear 117, Estimated GFR 88, Est GFR ( Amer) 107, Glucose 103 H, Calcium 9.0, Total Bilirubin 0.7, AST 32, ALT 30, Alkaline Phosphatase 78, Troponin I < 0.01, Total Protein 7.5, Albumin 4.4, Globulin 3.1, Albumin/Globulin Ratio 1.4 09/16/24 01:23: Troponin I 0.03 09/15/24 23:29 09/15/24 23:29 Orders (Tests/Meds): ED MEDICATIONS Discontinued Medications Generic Name Dose Route Start Last Admin Trade Name Freq PRN Reason Stop Dose Admin Aspirin 324 mg 09/15/24 23:30 09/15/24 23:33 Aspirin 81mg Chewable Tablet PO 09/15/24 23:31 324 mg ONCE ONE Administration ORDERS Category Date Time Status CXR --portable [XR chest portable] Stat Exams 09/15/24 23:30 Completed CBC w/Auto Diff [Complete Blood Count Auto Diff] Stat Lab 09/15/24 23:29 Completed CMP [Comprehensive Metabolic Panel] Stat Lab 09/15/24 23:29 Completed D-Dimer Stat Lab 09/15/24 23:29 Completed Troponin I Q3H Lab 09/15/24 23:29 Completed Troponin I Q3H Lab 09/16/24 01:23 Completed ECG Data Tracing #1: I reviewed this ECG and interpreted as documented below: Sinus rhythm, rate of 74, insignificant Q-wave in lead III, no significant ST or T wave changes. ECG initial impression date: 09/15/24 ECG initial impression time: 23:27 HEART Score History (anamnesis): Slightly suspicious ECG: Normal Age: 45-65 years Risk factors: No known risk factors Troponin: </= normal limit HEART Score: 1 Medical Decision Narrative: 54-year-old male without significant past medical history presents for intermittent sharp left anterior chest wall pains. History was obtained via interactive discussion with patient. On arrival, patient is [afebrile, hemodynamically stable but moderately hypertensive, satting appropriately, alert, oriented x4, GCS 15], moving all extremities spontaneously. Full physical exam performed and significant for no significant physical exam abnormalities Differential includes but is not limited to ACS, PE, musculoskeletal chest pain, esophageal spasm, hypertensive urgency hypertensive emergency, pleurisy. Patient was given full dose aspirin for symptomatic management and correction of underlying abnormalities. Workup initiated including CBC CMP troponin EKG chest x-ray D-dimer. On re-evaluation, patient [remains afebrile, HD stable.] Laboratory workup independently interpreted by me and significant for negative initial troponin, D-dimer negative by years criteria, no significant electrolyte derangement. Imaging independently interpreted by me and significant for clear lungs bilaterally without focal opacity. See radiology read for full review of final results. EKG independently interpreted by me and significant for normal sinus rhythm without ischemic changes. Patient was placed in ED ED observation status for cardiac monitoring and serial troponins. On reassessment, patient reports symptomatic improvement. Repeat troponin returned within normal limits. Patient was encouraged to follow-up with PCP and to please return with any new or worsening symptoms. Recommended he follow-up with his PCP/cardiology. Discussed with him that his blood pressure was high during our evaluation and he needs to get that checked on him. Procedures Risk/Benefits of Procedure(s) Were Explained: Yes Critical Care Critical Care Time Critical Care Time: No
[2024-09-15 23:49] LABS: Alanine Aminotransferase 30 U/L (12-78); Albumin Level 4.4 g/dl (3.5-5.0); Albumin/Globulin Ratio 1.4 (1.1-1.8); Alkaline Phosphatase 78 U/L (38-126); Anion Gap 11.6 mEq/L (5-15); Aspartate Amino Transferase 32 U/L (17-59); Bilirubin,Total 0.7 mg/dl (0.2-1.3); Blood Urea Nitrogen 23 mg/dl (9-20); Carbon Dioxide 27 mmol/L (22.0-30.0); Chloride 103 mmol/L (98-107); Creatinine Clearance Estimated 117 mL/min (50-200); Estimated Glomerular Filt Rate 88 ml/min (>60); GFR (African American) 107 ML/MIN (>60); Globulin 3.1 g/dL (1.3-3.2); Glucose 103 mg/dl (74-100); Potassium 3.6 mmoL/L (3.5-5.1); Sodium 138 mmol/L (136-145); Total Protein,Serum 7.5 g/dl (6.3-8.2)
[2024-09-15 23:50] VITALS: PULSE 76
[2024-09-15 23:54] LABS: D-Dimer 0.57 ug/mL (0.0-0.5)
[2024-09-16] VITALS: BP 151/102; PULSE 73; RESP 11; O2SAT 97
[2024-09-16 00:03] LABS: Troponin I < 0.01 ng/ml (0.00-0.034)
[2024-09-16 00:07] VITALS: BP 141/100; PULSE 76; RESP 8; O2SAT 98
[2024-09-16 00:47] VITALS: BP 157/106; PULSE 67; RESP 14; O2SAT 97
[2024-09-16 01:00] VITALS: BP 134/90; PULSE 64; RESP 12; O2SAT 98
[2024-09-16 01:30] VITALS: BP 140/92; PULSE 63; RESP 12; O2SAT 95
[2024-09-16 01:52] LABS: Troponin I 0.03 ng/ml (0.00-0.034)
[2024-09-16 02:01] VITALS: BP 128/90; PULSE 74; RESP 16; TEMP 36.6; O2SAT 98
--- NOTE | 2024-09-16 02:02 | PC.NURSE ---
IV removed. Catheter tip intact. Bleeding controlled.
== END 2024-09-16 02:06 | disposition home or self-care (01) ==
PROVIDERS: Emergency Provider Emergency Medicine
DX: R07.9 Chest pain, unspecified (principal); I10 Essential (primary) hypertension
CPT/HCPCS: 71045; 80053; 84484; 85025; 85378; 93005; 99284